=== PATIENT | female | born 1950 | race Caucasian/White ===

== ENCOUNTER 2020-02-16 18:31 | Emergency (ER) | payer MEDICARE, SELFPAY ==
--- NOTE | ~2020-02-16 | XR_ITS ---
EXAMINATION: XR abdomen/kub 1V DATE: 02/16/2020 20:40 INDICATION: Left renal stone with hematuria and left-sided abdominal pain. TECHNIQUE: A supine view of the abdomen on 2 radiographs was obtained. COMPARISON: CT dated 02/16/2020. FINDINGS: 2-3 mm stones are seen projecting over the upper pole of the right kidney and interpolar region of th e left kidney. The 2 x 4 mm stone previously seen in the proximal left ureter is unable to be definit ively identified. Unchanged pattern of a few phleboliths in the pelvis. Normal bowel gas pattern. Cho lecystectomy clips in the right upper quadrant. IMPRESSION: 1. Bilateral nephrolithiasis. Proximal left ureteral stone seen on the prior CT is unable to be defin itively identified. Reviewed, dictated and finalized at location A. IMPRESSION: 1. Bilateral nephrolithiasis. Proximal left ureteral stone seen on the prior CT is unable to be definitively identified.
--- NOTE | ~2020-02-16 | CT_ITS ---
EXAMINATION: CT abdomen pelvis wo con DATE: 02/16/2020 20:00 INDICATION: Left lower quadrant abdominal pain. TECHNIQUE: Computed tomography (CT) of the abdomen and pelvis was performed without intravenous contr ast. Automated exposure control and iterative reconstruction technique were employed. The dose-length product was 308.72 mGy-cm. COMPARISON: 01/07/2019 FINDINGS: Minimal atelectasis in the dependent right lower lobe. Heart size is normal. Small amount of atherosc lerotic coronary artery calcification. No pericardial or pleural effusion. Small sliding-type hiatal hernia. Again seen are multiple scattered hepatic cysts the largest in the right hepatic lobe measuri ng up to 3.5 cm in maximal diameter. Cholecystectomy clips the gallbladder fossa. There are 3 periphe rally calcified splenic artery aneurysms the largest measuring up to 7 mm in maximal diameter. Pancre as and bilateral adrenal glands are normal. 2 mm obstructing stone in the proximal left ureter with m ild left hydronephrosis. Additional 3 mm stone at the upper pole calyx of right kidney and 2 mm stone in a middle calyx of the left kidney. Moderate sigmoid diverticulosis without adjacent inflammatory change to suggest diverticulitis. No bowel obstruction. The appendix is not visualized. No pericecal inflammatory change to suggest acute appendicitis. Bladder is normal. No free intraperitoneal gas or fluid. No pathologically enlarged abdominal or pelvic lymphadenopathy. Chronic mild anterior wedging of T11. Severe spondylosis at the lumbosacral junction. IMPRESSION: 1. Bilateral nephrolithiasis with obstructing 2 mm proximal left ureteral stone with mild left hydron ephrosis. Reviewed, dictated and finalized at location A. IMPRESSION: 1. Bilateral nephrolithiasis with obstructing 2 mm proximal left ureteral stone with mild left hydronephrosis.
[2020-02-16 18:58] VITALS: BP 143/87; PULSE 70; RESP 18; TEMP 36.2; O2SAT 99
[2020-02-16 19:15] LABS: Basophils Percent Auto 0.6 % (0.2-1.2); Eosinophils Absolute Auto 0.1 K/mm3 (0-0.3); Eosinophils Percent Auto 1.4 % (0-4.4); Hematocrit 43.7 % (37.0-47.0); Hemoglobin 14.9 g/dL (12.0-15.0); Immature Granulocyte Absolute 0.01 K/mm3 (0.00-0.031); Immature Granulocyte Percent A 0.2 % (0-0.5); Lymphocytes Absolute Auto 2.45 K/mm3 (0.9-3.2); Lymphocytes Percent Auto 37.4 % (18.3-44.2); Mean Corpuscular HGB Conc 34.1 g/dl (32-36); Mean Corpuscular Volume 88.1 fl (80-100); Mean Platelet Volume 9.9 fl (7.4-10.4); Monocytes Absolute Auto 0.4 K/mm3 (0.1-0.6); Monocytes Percent Auto 6.1 % (2.6-8.5); Neutrophils Absolute Auto 3.6 K/mm3 (1.3-6.7); Neutrophils Percent Auto 54.3 % (45.5-73.1); Platelet Count Result 263 k/mm3 (150-375); Red Blood Count 4.96 M/mm3 (4.2-5.4); Red Cell Distribution Width 13.7 % (11.5-14.5); White Blood Count 6.6 K/mm3 (4.5-10.0)
[2020-02-16 19:25] LABS: Anion Gap 7 mmol/L (8-16); Blood Urea Nitrogen 12 mg/dL (7-17); Calcium 9.5 mg/dL (8.4-10.2); Carbon Dioxide 28 mmol/L (22-30); Chloride 107 mmol/L (98-107); Estimated CRCL calculation 47 ml/min; Estimated Glomerular Filt Rate > 60; Glucose 126 mg/dL (65-105); Potassium 3.5 mmol/L (3.4-5.0); Sodium 142 mmol/L (137-145)
[2020-02-16] MEDS: ONDANSETRON INJ 4 MG/2 ML VIAL IV PUSH (19:47)
[2020-02-16 19:48] VITALS: BP 156/98; PULSE 66; RESP 17; O2SAT 96
[2020-02-16] MEDS: MORPHINE SULFATE (*CRX) 4 MG/ML INJ IV PUSH (19:48)
--- NOTE | 2020-02-16 19:52 | ED.ABDPAIN ---
HPI - Abdominal Pain General Chief Complaint: Abdominal Pain Stated Complaint: abdominal pain, blood in urine Time Seen by Provider: 02/16/20 19:26 History of Present Illness HPI narrative: Patient is a 70-year-old female who presents ER with left lower quadrant abdominal pain. It radiates to her left back. Patient reports symptoms began early in the morning and have increased throughout the day. She had an episode of hematuria with this. No dysuria. She without fevers or chills or sweats. She did have some loose stools over the last couple days. She has history of both kidney stones as well as diverticulitis. Patient has found no aggravating or alleviating factors. Related Data Allergies Allergy/AdvReac Type Severity Reaction Status Date / Time Sulfa (Sulfonamide Allergy Unknown Verified 01/11/18 16:17 Antibiotics) NKFA Allergy Unknown Uncoded 11/10/02 14:37 Review of Systems Review of Systems: All systems reviewed & are unremarkable except as noted in HPI and below Constitutional: Constitutional: Denies chills, Denies fever(s) and Denies weakness Respiratory: Respiratory: Denies cough and Denies dyspnea Gastrointestinal: Gastrointestinal: Reports abdominal pain, Reports diarrhea, Denies nausea and Denies vomiting Genitourinary: Genitourinary: Reports hematuria, Denies nocturia, Denies dysuria and Reports flank pain PMFSH Past Medical History Medical History (Updated 02/16/20 @ 21:43 by Behzad Morgan MD) Diverticulitis GERD (gastroesophageal reflux disease) Kidney stones Surgical History Surgical History (Updated 02/16/20 @ 19:55 by Behzad Morgan MD) History of appendectomy History of cholecystectomy History of hysterectomy Social History Social History (Updated 02/16/20 @ 19:55 by Behzad Morgan MD) Smoking status: Never smoker Exam Narrative: Exam Narrative: GENERAL: Uncomfortable-appearing, well-nourished, and in no acute distress. HEAD: Normocephalic, atraumatic. CHEST: Clear to auscultation. No respiratory distress. HEART: Regular rate and rhythm. Normal peripheral pulses. ABDOMEN: Soft, nontender, nondistended. No CVA tenderness EXTREMITIES: Normal range of motion. No edema. SKIN: Warm, dry, no rash. NEURO: Alert and oriented x3. PSYCH: Normal mood and affect. Course Course Emergency Course: Pain improving with Toradol. Informed results. Discharge home with supportive therapy. Recommend contacting urology in the morning for follow-up evaluation. Vital Signs Vital signs: Vital Signs Temperature 97.2 F L 02/16/20 18:58 Pulse Rate 70 02/16/20 18:58 Respiratory Rate 18 02/16/20 18:58 Blood Pressure 143/87 H 02/16/20 18:58 Pulse Oximetry 99 02/16/20 18:58 Temperature 97.2 F L 02/16/20 18:58 Pulse Rate 66 02/16/20 19:48 Respiratory Rate 17 02/16/20 19:48 Blood Pressure 156/98 H 02/16/20 19:48 Pulse Oximetry 96 02/16/20 19:48 MDM - Abdominal Pain Lab Data Result diagrams: 02/16/20 19:06 02/16/20 19:06 Labs: Lab Results 02/16/20 02/16/20 02/16/20 Range/Units 19:06 19:06 19:34 WBC 6.6 (4.5-10.0) K/mm3 RBC 4.96 (4.2-5.4) M/mm3 Hgb 14.9 (12.0-15.0) g/dL Hct 43.7 (37.0-47.0) % MCV 88.1 (80-100) fl MCH 30.0 (26-34) pg MCHC 34.1 (32-36) g/dl RDW 13.7 (11.5-14.5) % Plt Count 263 (150-375) k/mm3 MPV 9.9 (7.4-10.4) fl Immature Gran % (Auto) 0.2 (0-0.5) % Neut % (Auto) 54.3 (45.5-73.1) % Lymph % (Auto) 37.4 (18.3-44.2) % [place] % (Auto) 6.1 (2.6-8.5) % Eos % (Auto) 1.4 (0-4.4) % Baso % (Auto) 0.6 (0.2-1.2) % Lymph # (Auto) 2.45 (0.9-3.2) K/mm3 [place] # (Auto) 0.4 (0.1-0.6) K/mm3 Eos # (Auto) 0.1 (0-0.3) K/mm3 Baso # (Auto) 0.0 (0.0-0.1) K/mm3 Abs Immat Gran (auto) 0.01 (0.00-0.031) K/mm3 Absolute Neuts (auto) 3.6 (1.3-6.7) K/mm3 Absolute Nucleated RBC 0.0 (0.0-0.012) K/mm3 Nucleated
[2020-02-16 19:54] LABS: Add Urine Microscopic? YES; Amorphous Sediment Urine Few; Appearance Urine Cloudy (Clear); Bacteria Urine Trace /hpf; Bilirubin Urine Negative (Negative); Blood Urine 3+ (Negative); Color Urine Red (Yellow); Glucose Urine UA Negative (Negative); Ketones Urine Negative (Negative); Leukocyte Esterase Ur Trace LEU/UL (Negative); Mucus Urine Heavy /lpf; Nitrate Urine Negative (Negative); Protein Urine 1+ mg/dL (Negative); RBC Urine >75 /hpf (0-2); Squamous Epithelial Cell Urine Rare /hpf (Few); Urobilinogen Urine Negative mg/dL (<2.0)
--- NOTE | 2020-02-16 19:54 | PC.NURSE ---
Pt. to ct
[2020-02-16] MEDS: KETOROLAC 15 MG/ML VIAL (*BKC) IV PUSH (20:28)
[2020-02-16 21:55] VITALS: BP 150/84; PULSE 57; RESP 19; O2SAT 94
== END 2020-02-16 21:55 | disposition home or self-care (01) ==
PROVIDERS: Emergency Medicine; Emergency Provider Emergency Medicine; PCP Family Medicine
DX: N13.2 Hydronephrosis with renal and ureteral calculous obstruction (principal); K21.9 Gastro-esophageal reflux disease without esophagitis; Z87.442 Personal history of urinary calculi
CPT/HCPCS: 36415; 74018; 74176; 80048; 81001; 85025; 87086; 87088; 96374; 96375; 99284; J1885; J2270; J2405

== ENCOUNTER 2020-02-19 00:30 | Day surgery (SDC) | payer MEDICARE, SELFPAY ==
[2020-02-18 14:21] VITALS: BMI 25.7
[2020-02-19] VITALS (9 sets, daily range): BP systolic 110–152; BP diastolic 63–84; PULSE 55–82; RESP 12–18; TEMP 36.2–36.3; O2SAT 96–100
--- NOTE | ~2020-02-19 | XR_ITS ---
EXAMINATION: XR retrograde pyelo w/stent LT EXAM DATE: 02/19/2020 11:27 INDICATION: Ureteral stone. TECHNIQUE: Fluoroscopy used during XR retrograde pyelo w/stent LT performed by Dr. Reymunod serna MD. The DAP for this procedure was 0.3 mGym2. FINDINGS: Left ureter was cannulated, injected. There is mild to moderate left hydronephrosis. A lef t double-J ureteral stent was placed. Correlate with procedure note. IMPRESSION: Mild to moderate left hydronephrosis. Stent in position. Reviewed, dictated and finalized at location A.
--- NOTE | ~2020-02-19 | CT_ITS ---
EXAMINATION: CT abdomen pelvis wo con EXAM DATE: 02/19/2020 09:51 INDICATION: Renal stones. Flank pain. TECHNIQUE: Spiral CT of the abdomen and pelvis was performed without contrast. Axial, coronal and sag ittal images were reviewed. The dose-length product (DLP) for this examination was 282.85 mGy-cm. T he exposure was tailored according to patient size (auto mA exposure control), and iterative reconstr uction (ASIR) was used as additional dose reduction technique. Comparison is made to prior examinatio n from 02/16/2020. FINDINGS: There is a 3 mm stone in the proximal aspect of the left ureter with mild to moderate left- sided hydronephrosis. Position is unchanged compared to prior study but the hydronephrosis has progre ssed slightly. Additional 2 mm left calyceal and 3 mm right calyceal stones. The uterus is not ident ified and has likely been surgically resected. The bladder is unremarkable. Multiple liver fluid de nsity lesions consistent with cysts. Gallbladder not identified, patient likely has had cholecystect yordy. There is no retroperitoneal or pelvic lymphadenopathy. There is mild scattered arteriosclerot ic disease. The appendix is not positively visualized. There is no pericecal inflammatory change to suggest appe ndicitis. There is moderate colonic diverticulosis. There is no adjacent inflammatory change to sugg est diverticulitis. The stomach and small bowel are unremarkable. There is expected amount of coloni c stool. No free intraperitoneal gas. The heart is normal in size. There are no pericardial or p leural effusions. The lung bases are unremarkable. There are no osteoblastic or osteolytic lesions identified. IMPRESSION: 1. Left proximal ureteral 3 mm stone, mild to moderate left-sided hydronephrosis. 2. Bilateral nephrolithiasis. 3. Colonic diverticulosis. Reviewed, dictated and finalized at location A. IMPRESSION: 1. Left proximal ureteral 3 mm stone, mild to moderate left-sided hydronephros is. 2. Bilateral nephrolithiasis. 3. Colonic diverticulosis.
--- NOTE | 2020-02-19 09:59 | WPDHPUPDATE1 ---
History and Physical Update Update Date/Time: 02/19/20 09:59 History and Physical has been reviewed, including an updated exam of the patient. There are NO changes in the patient's condition. Risks, benefits, and alternatives have been discussed and questions answered. Patient agrees to proceed with procedure. Stone not visible on kub. Discussed with Rosa Elena. Will plan on cystoscoy with left retrograde, left ureteroscopy with stone extraction, possible laser, stent placement.
[2020-02-19] MEDS: LACTATED RINGERS 1,000 ML 30 ML IV CONT ×2 (10:29→12:20)
--- NOTE | 2020-02-19 10:29 | WPDANESEPPF ---
Anes - Initial Pre Proc Eval Procedure: Operation Date: 02/19/20 10:30 Proposed Procedures p Left Extracorporeal Shock Wave Lithotripsy, Possible Stent Placement - Reymundo Celis MD Date/Time: 02/19/20 10:29 Surgeon: Reymundo Celis MD Pre Op Diagnosis: left upj stone Patient Data Age: 70 Gender: F Height: 5 ft 5 in Weight: 70.31 kg Allergies Allergy/AdvReac Type Severity Reaction Status Date / Time Sulfa (Sulfonamide AdvReac Intermediate Nausea Verified 02/19/20 09:54 Antibiotics) Home Medications Medication Instructions Recorded Confirmed Type ergocalciferol (vitamin D2) 50,000 unit PO WEEKLY 02/18/20 02/19/20 History loratadine [Claritin] 10 mg PO DAILY 02/18/20 02/19/20 History Patient hx anesthesia problems: post op nausea/vomiting Family hx anesthesia problems: none PMFSH Past Medical History Medical History Diverticulitis GERD (gastroesophageal reflux disease) Kidney stones Surgical History Surgical History History of appendectomy History of cholecystectomy History of hysterectomy Social History Social History Smoking status: Never smoker Alcohol intake: never Substance use: never Substance use type: does not use Living arrangements: with family Spiritual care concerns: No Anes - Eval Final PreProcedure Day of Procedure 02/19/20 10:29 Patient weight: overweight Lungs: clear to auscultation Airway: Mallampati scale class II Neurological: alert and oriented Last oral intake: >/= 8 hours ASA classification: II Emergent: no Anesthetic plan: proceed Anesthesia type and monitoring: general LMA and standard monitoring Informed Consent: The patient's anesthetic plan and its attendant risks and benefits were discussed with the patient/family/POA. Questions were solicited and answers provided to the satisfaction of the patient/family/POA.
[2020-02-19] MEDS: ONDANSETRON INJ 4 MG/2 ML VIAL IV PUSH ×2 (10:30→12:16)
[2020-02-19] MEDS: FAMOTIDINE 20 MG/2 ML VIAL IV PUSH (10:31)
[2020-02-19] MEDS: ceFAZolin 2 GM/D5W 50 ML 2 GM/50 ML BAG IVPB (10:58)
[2020-02-19] MEDS: LIDOCAINE HCL 2% GEL UROJET 10 ML PKG MUCOUS MEM (11:27)
--- NOTE | 2020-02-19 11:27 | PM.PROC ---
Procedure Note - Detailed Date of procedure: 02/19/20 Pre-op diagnosis: left upj stone Left ureteral calculus 4 x 2 mm Post-op diagnosis: same Procedure performed: Cystoscopy, left retrograde pyelogram, left ureteroscopy with stone extraction, left ureteral stent placement 4.8 [place] contour Description of procedure: Patient is taken to the operative suite and correctly identified. Once anesthesia was obtained she was placed in dorsal lithotomy position and prepped and draped usual sterile fashion. Twenty-two [place] scope was inserted in the bladder there is no tumors noted. Left ureteral orifice was cannulated with a guidewire. An 8/10 dilator was used to dilate the orifice. A rigid ureteral scope was inserted there was nothing visualized in the distal ureter. We then placed a mini flexible ureteral scope in. We inspected entire ureter. It appears that the stone had migrated back up into the kidney. As such we inspected the kidney. The stone was visualized it was irregular in shape and measured the 4 x 2 mm. Using an escape basket we were able to retrieve it in its entirety and sent for analysis. Pyelogram was then performed to confirm placement of the stent. 4.8 [place] contour stent was then placed with the proximal end coiled in the renal pelvis and the distal end in the bladder. 2% viscous lidocaine was inserted urethra. On fluoroscopy it appeared that there was some calcification right next to the distal stent we placed another rigid ureteral scope into the orifice and it is clearly visible that this is outside of the ureter. She will follow up in a week's time for stent removal. Anesthesia: GLMA Surgeon: Reymundo Celis MD Drains: Yes Packing: No Pathology: yes Complications: No immediate complications Condition: stable Disposition: PACU
--- NOTE | 2020-02-19 11:30 | PM.IMHP ---
H&P: HPI History of Present Illness Date/Time: 02/19/20 11:30 Chief complaint: left upj stone Narrative: Rosa Elena Greene is a 70 year old female who was seen by 1 of our nurse practitioners and found to have a 4 x 2 mm left ureteral calculus. It was poorly visible on plain film. She now presents for further evaluation and management. Review of Systems Review of Systems: All systems reviewed & are unremarkable except as noted in HPI and below PMFSH Past Medical History Medical History Diverticulitis GERD (gastroesophageal reflux disease) Kidney stones Surgical History Surgical History History of appendectomy History of cholecystectomy History of hysterectomy Social History Social History Smoking status: Never smoker Alcohol intake: never Substance use: never Substance use type: does not use Living arrangements: with family Spiritual care concerns: No Meds Home Medications and Allergies Home Medications Medication Instructions Recorded Confirmed Type ergocalciferol (vitamin D2) 50,000 unit PO WEEKLY 02/18/20 02/19/20 History loratadine [Claritin] 10 mg PO DAILY 02/18/20 02/19/20 History Allergies Allergy/AdvReac Type Severity Reaction Status Date / Time Sulfa (Sulfonamide AdvReac Intermediate Nausea Verified 02/19/20 09:54 Antibiotics) Vital Signs Vital Signs - 24 hr 02/19/20 10:39 Temperature 36.3 C L Pulse Rate 61 Respiratory Rate 16 Blood Pressure 134/79 Pulse Oximetry 98 Exam Const: General: uncomfortable HENMT: General nose exam: Normal nares present Eyes: General: appearance normal, both eyes and all related structures Resp: Effort & Inspection: normal respiratory effort Cardio: Rate: regular rate GI: GI Palp: Yes Soft to palpation Neuro: Speech: normal speech Assessment and Plan Assessment and plan (1) Left ureteral calculus: Code(s): N20.1 - Calculus of ureter Status: Acute Assessment and Plan: Plan for cystoscopy, left retrograde pyelogram, left ureteroscopy with stone extraction, left ureteral stent placement.
--- NOTE | 2020-02-19 16:27 | SUR.PHASEII ---
1330; PT DRESSED. C/O MILD NAUSEA. WANTS TO SIT AND RELAX FOR A WHILE. 1350; PT STATES SHE IS NAUSEA AND PAIN FREE. READY TO GO HOME. MEETS DISCHARGE CRITERIA.
== END 2020-02-19 14:10 | disposition home or self-care (01) ==
PROVIDERS: PCP Family Medicine; Visit Provider Urology
PROC: (CPT 50590; principal; 2020-02-19 10:30)
DX: N13.2 Hydronephrosis with renal and ureteral calculous obstruction (principal); K21.9 Gastro-esophageal reflux disease without esophagitis
CPT/HCPCS: 52352; 52332; 74176; 74420; 82365; 88300; A9270; C1769; C2617; J0690; J1100; J2250; J2405; J2704; J3010; J7120

== ENCOUNTER 2020-06-06 12:04 | Outpatient (CLI) | payer MEDICARE, SELFPAY ==
--- NOTE | ~2020-06-06 | XR_ITS ---
EXAMINATION: XR abdomen/kub 1V EXAM DATE: 06/06/2020 12:28 INDICATION: Follow-up kidney stone. TECHNIQUE: Frontal projection of the upper abdomen, frontal projection lower abdomen/pelvis for inter pretation. Comparison is made to prior examination from 02/16/2020. FINDINGS: Probable small bilateral nephrolithiasis up to 3 mm. There are cholecystectomy clips. Nono bstructive bowel gas pattern. There are mild bony degenerative changes. IMPRESSION: Probable small nephrolithiasis. Reviewed, dictated and finalized at location A. [employer]
== END 2020-06-06 12:05 | disposition home or self-care (01) ==
PROVIDERS: PCP Family Medicine; Visit Provider Urology
DX: N20.0 Calculus of kidney (principal)
CPT/HCPCS: 74018

== ENCOUNTER → 2021-04-06 02:34 | Outpatient (CLI) | payer MEDICARE, SELFPAY ==
[2021-04-06 18:39] LABS: SARS-CoV-2 RNA PCR Negative
== END ==
PROVIDERS: PCP Family Medicine; Visit Provider Family Medicine
DX: R50.9 Fever, unspecified (principal); Z20.822 Contact with and (suspected) exposure to COVID-19
CPT/HCPCS: C9803; U0003; U0005

== ENCOUNTER 2021-04-26 00:26 | Day surgery (SDC) | payer MEDICARE, SELFPAY ==
[2021-04-11 14:19] VITALS: BMI 27.5
[2021-04-26 10:22] VITALS: BP 149/92; PULSE 91; RESP 18; TEMP 26.9; O2SAT 96
[2021-04-26] MEDS: LACTATED RINGERS 1,000 ML 150 ML IV CONT (10:32)
--- NOTE | 2021-04-26 11:15 | WPDANESEPPF ---
Anes - Initial Pre Proc Eval Procedure: Operation Date: 04/26/21 11:30 Proposed Procedures p Screening Colonoscopy - Roe Parkinson MD Date/Time: 04/26/21 11:15 Surgeon: Roe Parkinson MD Pre Op Diagnosis: neoplasm screening Patient Data Age: 71 Gender: F Height: 1.65 m Weight: 80.4 kg Last Vital Signs Temp 80.4 F L 04/26/21 10:22 Pulse 91 04/26/21 10:22 Resp 18 04/26/21 10:22 BP 149/92 H 04/26/21 10:22 Pulse Ox 96 04/26/21 10:22 Allergies Allergy/AdvReac Type Severity Reaction Status Date / Time Sulfa (Sulfonamide AdvReac Intermediate Nausea Verified 04/26/21 10:21 Antibiotics) Home Medications Medication Instructions Recorded Confirmed Type ergocalciferol (vitamin D2) 50,000 unit PO WEEKLY 02/18/20 04/11/21 History loratadine [Claritin] 10 mg PO DAILY 02/18/20 04/11/21 History escitalopram oxalate 5 mg PO HS 04/11/21 04/11/21 History Patient hx anesthesia problems: none Family hx anesthesia problems: none Results Review: All pre-operative results and documents have been reviewed as part of the pre-operative evaluation. [facility] Past Medical History Medical History (Updated 02/19/20 @ 11:32 by Reymundo Celis MD) Diverticulitis GERD (gastroesophageal reflux disease) Kidney stones Surgical History Surgical History History of appendectomy History of cholecystectomy History of hysterectomy Social History Social History Smoking status: Never smoker Alcohol intake: never Substance use: never Substance use type: does not use Living arrangements: with family Spiritual care concerns: No Anes - Eval Final PreProcedure Day of Procedure 04/26/21 11:15 Patient weight: obese Heart: regular rate and rhythm Lungs: clear to auscultation Airway: Mallampati scale class II Neurological: alert and oriented Last oral intake: >/= 8 hours ASA classification: II Emergent: no Anesthetic plan: proceed Anesthesia type and monitoring: general GIVS and standard monitoring Results Review: All pre-operative results and documents have been reviewed as part of the pre-operative evaluation. Informed Consent: The patient's anesthetic plan and its attendant risks and benefits were discussed with the patient/family/POA. Questions were solicited and answers provided to the satisfaction of the patient/family/POA.
--- NOTE | 2021-04-26 11:16 | WPDANESEPPF ---
Anes - Initial Pre Proc Eval Procedure: Operation Date: 04/26/21 11:30 Proposed Procedures p Screening Colonoscopy - Roe Parkinson MD Date/Time: 04/26/21 11:16 Surgeon: Roe Parkinson MD Pre Op Diagnosis: neoplasm screening Patient Data Age: 71 Gender: F Height: 1.65 m Weight: 80.4 kg Last Vital Signs Temp 80.4 F L 04/26/21 10:22 Pulse 91 04/26/21 10:22 Resp 18 04/26/21 10:22 BP 149/92 H 04/26/21 10:22 Pulse Ox 96 04/26/21 10:22 Allergies Allergy/AdvReac Type Severity Reaction Status Date / Time Sulfa (Sulfonamide AdvReac Intermediate Nausea Verified 04/26/21 10:21 Antibiotics) Home Medications Medication Instructions Recorded Confirmed Type ergocalciferol (vitamin D2) 50,000 unit PO WEEKLY 02/18/20 04/11/21 History loratadine [Claritin] 10 mg PO DAILY 02/18/20 04/11/21 History escitalopram oxalate 5 mg PO HS 04/11/21 04/11/21 History Patient hx anesthesia problems: none Family hx anesthesia problems: none Results Review: All pre-operative results and documents have been reviewed as part of the pre-operative evaluation. [facility] Past Medical History Medical History (Updated 02/19/20 @ 11:32 by Reymundo Celis MD) Diverticulitis GERD (gastroesophageal reflux disease) Kidney stones Surgical History Surgical History History of appendectomy History of cholecystectomy History of hysterectomy Social History Social History Smoking status: Never smoker Alcohol intake: never Substance use: never Substance use type: does not use Living arrangements: with family Spiritual care concerns: No Anes - Eval Final PreProcedure Day of Procedure 04/26/21 11:16 Patient weight: obese Heart: regular rate and rhythm Lungs: clear to auscultation Airway: Mallampati scale class II Neurological: alert and oriented Last oral intake: >/= 8 hours ASA classification: II Emergent: no Anesthetic plan: proceed Anesthesia type and monitoring: general GIVS and standard monitoring Results Review: All pre-operative results and documents have been reviewed as part of the pre-operative evaluation. Informed Consent: The patient's anesthetic plan and its attendant risks and benefits were discussed with the patient/family/POA. Questions were solicited and answers provided to the satisfaction of the patient/family/POA.
--- NOTE | 2021-04-26 11:18 | PM.HPGS ---
History of Present Illness History of Present Illness Consent: Risks, benefits, and alternatives have been discussed and questions answered. Patient agrees to proceed with procedure. Chief complaint: neoplasm screening Narrative: Rosa Elena Greene is a 71 year old female here for screening colonoscopy, last one 10 years ago. Review of Systems Constitutional: Constitutional: Denies headache(s) and Denies weakness Eyes: Eyes: Denies blurry vision ENT: Reports Normal hearing present, Denies headache(s) and Denies neck pain Cardiovascular: Cardiovascular: Denies chest pain and Denies dyspnea Respiratory: Respiratory: Denies dyspnea Gastrointestinal: Gastrointestinal: Reports no additional gastrointestinal complaints Genitourinary: Genitourinary: Denies dysuria Musculoskeletal: Musculoskeletal: Denies neck pain Integumentary/Breasts: Skin/Breast: Denies dry skin Neurologic: Reports Normal hearing present, Denies headache(s) and Denies weakness Psychiatric: Psychiatric: Denies anxiety Endocrine: Endocrine: Denies change in body appearance Hematologic/Lymphatic: Hematologic/Lymphatic: Denies easy bleeding Allergic/Immunologic: Allergic/Immunologic: Denies urticaria PMF Past Medical History Medical History (Updated 04/26/21 @ 11:19 by Roe Parkinson MD) Colon cancer screening Diverticulitis GERD (gastroesophageal reflux disease) Kidney stones Surgical History Surgical History History of appendectomy History of cholecystectomy History of hysterectomy Social History Social History Smoking status: Never smoker Alcohol intake: never Substance use: never Substance use type: does not use Living arrangements: with family Spiritual care concerns: No Meds Home Medications and Allergies Home Medications Medication Instructions Recorded Confirmed Type ergocalciferol (vitamin D2) 50,000 unit PO WEEKLY 02/18/20 04/11/21 History loratadine [Claritin] 10 mg PO DAILY 02/18/20 04/11/21 History escitalopram oxalate 5 mg PO HS 04/11/21 04/11/21 History Allergies Allergy/AdvReac Type Severity Reaction Status Date / Time Sulfa (Sulfonamide AdvReac Intermediate Nausea Verified 04/26/21 10:21 Antibiotics) Vital Signs Vital Signs - 24 hr 04/26/21 10:22 Temperature 80.4 F L Pulse Rate 91 Respiratory Rate 18 Blood Pressure 149/92 H Pulse Oximetry 96 Exam Const: General: comfortable and no acute distress HENMT: General nose exam: Normal nares present Eyes: General: appearance normal, both eyes and all related structures Neck: Neck: no JVD Resp: Auscultation: clear to auscultation bilaterally Cardio: Rate: regular rate Rhythm: regular rhythm GI: Inspection: non-distended GI Palp: Yes Soft to palpation Skin: General skin exam: normal color Neuro: General: gait normal Speech: normal speech Extrem: General: normal to inspection Psych: Mental Status: mental status grossly normal Assessment and Plan Assessment and plan (1) Colon cancer screening: Code(s): Z12.11 - Encounter for screening for malignant neoplasm of colon Status: Acute Assessment and Plan: colonoscopy
[2021-04-26 11:43] VITALS: BP 123/76; PULSE 81; RESP 16; O2SAT 97
[2021-04-26 11:53] VITALS: BP 119/78; PULSE 66; RESP 18; O2SAT 98
[2021-04-26 12:03] VITALS: BP 128/74; PULSE 69; RESP 17; O2SAT 98
== END 2021-04-26 12:10 | disposition home or self-care (01) ==
PROVIDERS: PCP Family Medicine; Visit Provider Internal Medicine Gastroenterology
PROC: 0DJD8ZZ Inspection of Lower Intestinal Tract, Via Natural or Artificial Opening Endoscopic (ICD-10-PCS; CPT 45378; principal; 2021-04-26 11:30)
DX: Z12.11 Encounter for screening for malignant neoplasm of colon (principal); K57.30 Diverticulosis of large intestine without perforation or abscess without bleeding; K64.8 Other hemorrhoids; E66.9 Obesity, unspecified; Z68.29 Body mass index [BMI] 29.0-29.9, adult
CPT/HCPCS: G0121; J2704; J7120

== ENCOUNTER 2021-09-19 13:32 | Outpatient (CLI) | payer MEDICARE, SELFPAY ==
--- NOTE | 2021-09-27 15:25 | WPDHOLTEREM ---
Holter/Event Monitor Holter/Event Monitor Date of procedure: 09/19/21 Holter/Event Procedure: 48 Hr Holter Monitor Indications: Palpitations Conclusion: 1. 48 hour holter monitor on 09/19/21. 2. Predominant rhythm is sinus rhythm. HR range 48-136 bpm; average HR 65 bpm. 3. There are 125 premature supraventricular complexes and 9 supraventricular couplets. There are 5 episodes of atrial tachycardia, fastest at 162 bpm and longest lasting 7 beats. 4. There are 3 premature ventricular complexes. No ventricular tachycardia. 5. No sinoatrial or atrioventricular blocks. No significant pauses greater than 2 seconds. 6. Patient reports symptoms of dizziness and heart palpitations which demonstrate sinus rhythm, HR range 62-68 bpm.
== END 2021-09-19 13:33 | disposition home or self-care (01) ==
PROVIDERS: PCP Family Medicine; Visit Provider Family Medicine
DX: R00.2 Palpitations (principal)
CPT/HCPCS: 93225; 93226

== ENCOUNTER 2021-11-17 13:30 | Outpatient (RCR) | payer MEDICARE, SELFPAY ==
--- NOTE | 2021-10-05 11:52 | PTOPEVAL ---
Thank you for referring Rosa Elena Greene to [facility].? The patient is scheduled to be seen for therapy? 1 x/week for 4 weeks. Please review, sign, date and return this plan of care JAVIER. I agree with and certify that the following plan of care is medically necessary. Referring Physician Date Attending Provider: Juan Antonio Francis MD Referring Provider: Juan Antonio Francis MD *PT Outpatient Evaluation Start: 10/05/21 08:31 Freq: Status: Active Protocol: Document 10/05/21 08:32 CAP (Rec: 10/05/21 09:36 CAP [id number]) Therapy Assessment Status Assessment Status Assessment Status Evaluation Outpatient Past Medical History Past Medical History Source of Past Medical History Recalled from Previous Visit, Confirmed with Patient/Family Neurological History Hx Neurological Disorders No Significant History Cardiovascular History Hx Cardiac Disorders No Significant History Respiratory History Hx Respiratory Disorders No Significant History Gastrointestinal History Hx Cholecystectomy Yes: 2004 Hx Colitis Yes: 2018 Hx Diverticulitis Yes Hx Diverticulosis Yes Hx Irritable Bowel Yes: CONSTIPATION AND DIARRHEA Hx Ulcerative Colitis Yes: 2010 Genitourinary History Hx Kidney Stones Yes: 02/2019, 12/2016 Musculoskeletal History Hx Fractures Yes: FOOT X5, ELBOW X1 Hx Osteoporosis Yes Hematological History Hx Hematological Disorders No Significant History Endocrine History Hx Endocrine Disorders No Significant History HEENT History Hx Sinus Problems Yes: ALLERGIES Integumentary History Hx Skin Disorders No Significant History Reproductive History Hx Abnormal Uterine Bleeding Yes Hx Fibroids Yes Psychosocial History Hx Anxiety Yes Pain History History of Any Previous or Ongoing No Significant History Instance of Pain Anesthesia History Hx Post-Op Nausea/Vomiting Yes: WITH GENERALS Evaluation Information Problem Diagnosis vertigo Onset Apr 2021 Subjective Information She woke up with vertigo Query Text:As Reported By Patient/ symptoms. C/o the room Family spinning, rolling in bed and sit<>supine movement. She is unable to rene head back for getting hair cut or dentist visits. Denies increased symptoms with driving. she has had 2-3 episodes in the past 10 yrs. She has a history of falls.
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
--- NOTE | 2021-11-17 14:23 | PTOPEVAL ---
PHYSICAL THERAPY DISCHARGE REPORT 11-17-21 Refer to clinical summary below for her status today, compared to the initial evaluation. The goals were achieved, she will be discharged at this time. Thank you for referring Rosa Elena Greene to [facility] Please review, sign, date and return this Discharge report JAVIER. I agree with and certify that the following plan of care is medically necessary. Referring Physician Date Attending Provider: Juan Antonio Francis MD Subjective Information Rosa Elena reports: is doing Query Text:As Reported By Patient/ much better than initially; Family went to dentist a few days OK and did OK; little dizzy when tipped head back with shower and rinsing hair; no problems rolling in bed R/L; am careful when first get up out of bed, sit at the edge a minute before taking off walking; no falls or loss of balance with walking Pain Assessment Pain Score Pain Score 0: Self Report Vestibular Testing Niecy-Hallpike Right Vertigo but no Nystagmus Vestibular Testing Comments - standing 360' turn to R and L 1x rep -standing head R/L x 3 reps -pick something up off floor -stand eyes closed-- firm and foam x 10-20 seconds - walk 50': head turn R/L and up/down 5 reps each; - walk 50' with ball in both hands, eyes follow ball R/L, up/down and diagonal to R and L all above without any reports of dizziness, but off balance with walking head up/ down and eyes follow ball Eply performed to R: rep 1- little dizzy, cleared 10 sec; rep 2- no dizzy, with side lying to sitting had little dizzy; rep3- no dizzy, but side lying to sitting little dizzy, clear few seconds --------- issued and educated on Arora Daroff maneuver for self correction of BPPV; reinforced and discussed
== END 2021-11-21 13:50 | disposition home or self-care (01) ==
LOC: ANHPT 13:30
PROVIDERS: PCP Family Medicine; Referring Provider Otolaryngology; Visit Provider Otolaryngology
DX: H81.13 Benign paroxysmal vertigo, bilateral (principal); H90.3 Sensorineural hearing loss, bilateral
CPT/HCPCS: 97112; 97162; 97530

== ENCOUNTER 2021-12-01 15:01 | Emergency (ER) | payer MEDICARE, SELFPAY ==
--- NOTE | ~2021-12-01 | XR_ITS ---
XR chest 2V DATE: 12/01/2021 15:28 INDICATION: Cough for 2 weeks. Right chest pain. TECHNIQUE: 2 views COMPARISON: 02/23/2016 2 view chest FINDINGS: Normal heart size. Aortic calcification and mild unfolding. No hilar or mediastinal enlarge ment. No pulmonary infiltrate or consolidation, pleural effusion or pulmonary vascular congestion or pneumo thorax. Surgical clips overlie the upper abdomen on the lateral view. Osteopenia. IMPRESSION: No active cardiac pulmonary disease Aortic atherosclerosis Osteopenia Reviewed, dictated and finalized at location A.
[2021-12-01 15:09] VITALS: BP 139/83; PULSE 79; RESP 20; TEMP 36.3; O2SAT 99
--- NOTE | 2021-12-01 15:28 | ED.URI ---
HPI - URI/Sore Throat General Chief Complaint: Upper Respiratory Infection Stated Complaint: Cough Time Seen by Provider: 12/01/21 15:29 Source: patient and RN notes reviewed Mode of arrival: ambulatory Limitations: no limitations History of Present Illness HPI Narrative: 71-year-old female who presents to [facility] with complaints of dry cough for the past 2 weeks with cough so bad she states that she can't hardly even talk. Patient reports that she has had some right shoulder blade pain for the past week and also some right chest pain with cough also. Patient reports that she has not had any fevers, no sore throat, and no runny nose, and she can't get into her doctor for 2 weeks. Patient garay been taking Tessalon Perles for her cough which patient reports last only short interval. Patient concerned because she has history of having pneumonia and bronchitis in the past. Patient has had COVID vaccinations and flu shot MD elicited complaint: cough Onset (ago): week(s) (2) Consistency: progressively worsening Pain scale (0-10): 8 Able to tolerate fluids by mouth: Yes Exacerbating factors: exertion and other (speaking) Treatments prior to arrival: other (tessalon perles) Related Data Home Medications Medication Instructions Recorded Confirmed ergocalciferol (vitamin D2) 1,250 50,000 unit PO WEEKLY 02/18/20 12/01/21 mcg (50,000 unit) capsule loratadine 10 mg tablet (Claritin) 10 mg PO DAILY 02/18/20 12/01/21 levothyroxine 25 mcg tablet 1 tablet PO DAILY 12/01/21 12/01/21 Allergies Allergy/AdvReac Type Severity Reaction Status Date / Time Sulfa (Sulfonamide AdvReac Intermediate Nausea Verified 12/01/21 15:03 Antibiotics) Review of Systems Review of Systems: CONSTITUTIONAL: Denies fever, chills, or sweats. EYES: Denies visual changes, redness, or discharge. ENT: Denies rhinorrhea, congestion, sore throat, some right ear otalgia. CARDIOVASCULAR: Right shoulder blade and chest pain with cough,no palpitations, or edema. RESPIRATORY: dry constant cough or some dyspnea with cough GASTROINTESTINAL: Denies abdominal pain, nausea, vomiting, or diarrhea. GENITOURINARY: Denies dysuria or hematuria. SKIN: Denies rash or itching. MUSCULOSKELETAL: Reports right scapular back pain,no joint pain, or myalgia. NEUROLOGIC: Denies headache, numbness, or weakness. PSYCHIATRIC: Denies anxiety or depression. All systems reviewed & are unremarkable except as noted in HPI and below PMFSH Past Medical History Medical History Colon cancer screening Diverticulitis GERD (gastroesophageal reflux disease) Kidney stones Surgical History Surgical History History of appendectomy History of cholecystectomy History of hysterectomy Social History Social History Smoking status: Never smoker Alcohol intake: never Substance use: never Substance use type: does not use Spiritual care concerns: No Comments At time of signature, agree with nursing past medical, surgical, social and family history. There is no relevant family history pertinent to the presenting complaint Exam Narrative: GENERAL: Well-appearing, well-nourished, and in some acute distress. HEAD: Normocephalic, atraumatic. EYES: PERRLA and EOMI. ENT: Nares red clear post nasal rhinorrhea no epistaxis. Mucous membranes moist.TM's normal with good light reflex, throat with some mild redness no lesions or exudates or tonsil swelling NECK: Supple.no lymphadenopathy CHEST: Decreased with faint wheezes on auscultation with constant dry cough No respiratory distress.SAO2 99% on room air. Right scapular pain with some anterior right chest discomfort with cough, constant harsh cough, denies acute dyspnea. HEART: Regular rate and rhythm. No murmur heard. Normal peripheral pulses. ABDOMEN: Soft, nontender, nondistended, nor
== END 2021-12-01 15:58 | disposition home or self-care (01) ==
PROVIDERS: Emergency Provider Registered Nurse; PCP Family Medicine
DX: J40 Bronchitis, not specified as acute or chronic (principal); Z20.822 Contact with and (suspected) exposure to COVID-19; K21.9 Gastro-esophageal reflux disease without esophagitis
CPT/HCPCS: 71046; 87426; 99213; C9803; G0463

== ENCOUNTER 2022-10-01 14:09 | Emergency (ER) | payer MEDICARE, SELFPAY ==
--- NOTE | ~2022-10-01 | CT_ITS ---
EXAMINATION: CT abdomen pelvis w con DATE: 10/01/2022 16:19 INDICATION: Lower abdominal pain TECHNIQUE: Computed tomography (CT) of the abdomen and pelvis was performed with 100 mL Omnipaque-350 intravenous contrast. Automated exposure control and iterative reconstruction technique were employe d. The dose-length product was 651.69 mGy-cm. COMPARISON: 02/19/2020 FINDINGS: Mild atelectasis at the lung bases, right greater than left. Heart size is normal. Atherosclerotic co ronary artery calcific location. No pericardial or pleural effusion. Small sliding-type hiatal hernia . There is approximately 1.2 cm avidly enhancing lesion at the anterior periphery of segment 2 of the liver. Borderline dilation of the common bile duct which measures up to 7 mm and mild central intrah epatic biliary ductal dilation, both findings within normal limits post cholecystectomy with surgical clips at the gallbladder fossa. Spleen, pancreas and bilateral adrenal glands are normal. Small bila teral nonenhancing renal cysts, the largest measuring up to 1 cm on both the left and right. There is mild to moderate right hydroureteronephrosis extending to a 7 mm stone in the distal right ureter. T here is also a slightly delayed right nephrogram. No other evident urolithiasis. Bladder is normal. T he uterus is not identified and has likely been surgically resected. There is moderate no bowel obstr uction. colonic diverticulosis with a sigmoid predominance. There is no adjacent inflammatory change to suggest diverticulitis. No free intraperitoneal gas or fluid. No pathologically enlarged abdomina l or pelvic lymphadenopathy. Severe disc height loss at L5-S1. Otherwise mild spondylosis in the more cephalad lumbar and lower thoracic spine. Chronic mild anterior wedging at T11 with prominent Schmor l's node along the superior endplate. IMPRESSION: 1. Obstructing 7 mm distal right ureteral stone with mild to moderate right hydronephrosis and minima lly delayed right nephrogram. 2. 1.2 cm enhancing lesion in segment 2 of the liver most likely to represent either a hemangioma or transient hepatic attenuation difference. If patient is low risk for hepatocellular carcinoma and wit h no known history of prior malignancy to suggest metastatic disease superior corner further follow-u p. If the patient does have history of prior malignancy or has known chronic liver disease or other i ncreased risk factors for hepatocellular carcinoma would recommend further evaluation with pre and po stcontrast MRI. Reviewed, dictated and finalized at location A. IMPRESSION: 1. Obstructing 7 mm distal right ureteral stone with mild to moderate right hyd ronephrosis and minimally delayed right nephrogram. 2. 1.2 cm enhancing lesion in segment 2 of the liver most likely to represent e ither a hemangioma or transient hepatic attenuation difference. If patient is l ow risk for hepatocellular carcinoma and with no known history of prior maligna ncy to suggest metastatic disease superior corner further follow-up. If the pat ient does have history of prior malignancy or has known chronic liver disease o r other increased risk factors for hepatocellular carcinoma would recommend fur ther evaluation with pre and postcontrast MRI.
--- NOTE | ~2022-10-01 | XR_ITS ---
EXAMINATION: XR abdomen/kub 1V DATE: 10/01/2022 18:35 INDICATION: Right nephrolithiasis TECHNIQUE: A supine view of the abdomen was obtained. COMPARISON: CT dated 10/01/2022 FINDINGS: Persistent mild right hydroureteronephrosis extending to a transition point in the mid to distal righ t ureter but this corresponds to the location of the previously noted obstructing stone which likely remains in place but is difficult to distinguish from the adjacent excreted contrast. No left-sided h ydroureteronephrosis. Phlebolith in the left hemipelvis. Cholecystectomy clips in right upper quadran t. Normal bowel gas pattern. IMPRESSION: 1. Persistent mild to moderate right hydronephrosis related to an obstructing stone in the mid to dis christopher right ureter which is likely obscured by the excreted contrast in the ureter. Reviewed, dictated and finalized at location A. IMPRESSION: 1. Persistent mild to moderate right hydronephrosis related to an obstructing s tone in the mid to distal right ureter which is likely obscured by the excreted contrast in the ureter.
[2022-10-01 14:10] VITALS: BP 152/83; PULSE 86; RESP 16; TEMP 36.9; O2SAT 98
[2022-10-01 14:28] LABS: Basophils Percent Auto 0.6 % (0.2-1.2); Eosinophils Absolute Auto 0.2 K/mm3 (0-0.3); Eosinophils Percent Auto 2.3 % (0-4.4); Hematocrit 46.5 % (37.0-47.0); Hemoglobin 15.7 g/dL (12.0-15.0); Immature Granulocyte Absolute 0.01 K/mm3 (0.00-0.031); Immature Granulocyte Percent A 0.2 % (0-0.5); Lymphocytes Absolute Auto 1.95 K/mm3 (0.9-3.2); Mean Corpuscular HGB Conc 33.8 g/dl (32-36); Mean Corpuscular Hemoglobin 29.8 pg (26-34); Mean Corpuscular Volume 88.4 fl (80-100); Mean Platelet Volume 9.6 fl (7.4-10.4); Monocytes Absolute Auto 0.3 K/mm3 (0.1-0.6); Monocytes Percent Auto 5.1 % (2.6-8.5); Neutrophils Percent Auto 61.8 % (45.5-73.1); Platelet Count Result 250 k/mm3 (150-375); Red Blood Count 5.26 M/mm3 (4.2-5.4); Red Cell Distribution Width 13.7 % (11.5-14.5); White Blood Count 6.5 K/mm3 (4.5-10.0)
[2022-10-01 14:40] LABS: Alanine Aminotransferase 25 U/L (6-35); Albumin Level 4.3 g/dL (3.5-5.1); Alkaline Phosphatase 52 U/L (38-126); Anion Gap 9 mmol/L (8-16); Aspartate Amino Transferase 31 U/L (14-36); Bilirubin,Total 0.6 mg/dL (0.2-1.3); Blood Urea Nitrogen 7 mg/dL (7-17); Calcium 9.2 mg/dL (8.4-10.2); Carbon Dioxide 24 mmol/L (22-30); Chloride 105 mmol/L (98-107); Estimated CRCL calculation 58 ml/min; Estimated Glomerular Filt Rate > 60; Glucose 111 mg/dL (65-110); Lipase 157 U/L (23-300); Sodium 138 mmol/L (137-145)
[2022-10-01] MEDS: ONDANSETRON INJ 4 MG/2 ML VIAL IV PUSH (15:58)
[2022-10-01] MEDS: MORPHINE SULFATE (*CRX) 2 MG/ML INJ IV PUSH (15:58)
--- NOTE | 2022-10-01 16:05 | ED.ABDPAIN ---
HPI - Abdominal Pain General Chief Complaint: Abdominal Pain Stated Complaint: abdominal pain Time Seen by Provider: 10/01/22 15:32 History of Present Illness HPI narrative: Patient is a 72-year-old female here for evaluation of right flank and right lower quadrant abdominal pain x2 days. Patient states that the pain is severe in nature, coming in waves without warning. Does not seem to be related to meals or positions. She spoke with her primary care doctor who thought it may be diverticulitis, placed her on ciprofloxacin and dicyclomine but patient has had no improvement of her symptoms. Presents today due to worsening pain and nausea. No diarrhea, constipation, fevers or chills. History of kidney stones but pain today feels different. Related Data Home Medications Medication Instructions Recorded Confirmed ergocalciferol (vitamin D2) 1,250 50,000 unit PO WEEKLY 02/18/20 12/01/21 mcg (50,000 unit) capsule loratadine 10 mg tablet (Claritin) 10 mg PO DAILY 02/18/20 12/01/21 levothyroxine 25 mcg tablet 1 tablet PO DAILY 12/01/21 12/01/21 Allergies Allergy/AdvReac Type Severity Reaction Status Date / Time Sulfa (Sulfonamide AdvReac Intermediate Nausea Verified 10/01/22 15:47 Antibiotics) Review of Systems Review of Systems: Gen.: Denies fevers or chills Eyes: Denies eye pain or visual change ENT: Denies congestion Respiratory: Denies shortness of breath or cough CV: Denies chest pain or palpitations GI: Denies abdominal pain nausea, emesis or diarrhea denies burning, urgency, frequency or hematuria Musculoskeletal: Reports back pain Neuro: Denies numbness, tingling, weakness or focal weakness Skin: Denies rash Except as documented, all other systems reviewed and negative [facility] Past Medical History Medical History Colon cancer screening Diverticulitis GERD (gastroesophageal reflux disease) Kidney stones Surgical History Surgical History History of appendectomy History of cholecystectomy History of hysterectomy Social History Social History Smoking status: Never smoker Alcohol intake: never Substance use: never Substance use type: does not use Living arrangements: with family Spiritual care concerns: No Exam Narrative: APPEARANCE: uncomfortable appearing Head: Normocephalic and atraumatic. EYES: PERRLA/EOMI, conjunctivae clear NOSE: No nasal drainage EARS: External ear normal in appearance THROAT: Oropharynx is clear. Mucous membranes are moist. NECK: Supple. No adenopathy, no masses. RESPIRATORY: Airway patent, respirations nonlabored. Clear to auscultation bilaterally, no rales, rhonchi, wheezing. CARDIOVASCULAR: Regular rate and rhythm without murmurs, rubs, or gallops. ABDOMINAL: There is mild tenderness appreciated in the periumbilical region. MUSCULOSKELETAL: Extremities are warm and well-perfused. Moves all extremities well. No edema. NEURO: Normal speech. No focal neurologic deficits. SKIN: Skin is warm and dry. No rashes. PSYCHIATRIC: Normal affect/mood. Course Vital Signs Vital signs: Vital Signs Temperature 98.4 F 10/01/22 14:10 Pulse Rate 86 10/01/22 14:10 Respiratory Rate 16 10/01/22 14:10 Blood Pressure 152/83 H 10/01/22 14:10 Pulse Oximetry 98 10/01/22 14:10 Temperature 98.4 F 10/01/22 14:10 Pulse Rate 62 10/01/22 19:00 Respiratory Rate 18 10/01/22 19:00 Blood Pressure 161/77 H 10/01/22 19:00 Pulse Oximetry 97 10/01/22 19:00 MDM - Abdominal Pain MDM Narrative Medical decision making narrative: 72-year-old female here for evaluation of right flank and right lower quadrant abdominal pain for the past several days. She is uncomfortable in appearance and has very slight periumbilical abdominal tenderness on exam. Vital signs
[2022-10-01 16:50] LABS: Appearance Urine Clear (Clear); Bacteria Urine None Seen /hpf; Bilirubin Urine Negative (Negative); Blood Urine 3+ (Negative); Color Urine Yellow (Yellow); Glucose Urine UA Negative (Negative); Ketones Urine Negative (Negative); Leukocyte Esterase Ur Negative LEU/UL (Negative); Nitrate Urine Negative (Negative); Non Pathogenic Casts 0-2; Protein Urine Negative (Negative); RBC Urine 51-100 /hpf (0-2); Specific Grav Ur 1.012 (1.001-1.035); Squamous Epithelial Cell Urine None seen /hpf (Few); Urobilinogen Urine 0.2 mg/dL (<2.0); WBC Urine 0-5 /hpf
[2022-10-01] MEDS: SODIUM CHLORIDE 0.9% IV 1,000 ML 999 ML IV CONT (16:51)
[2022-10-01] MEDS: KETOROLAC 15 MG/ML VIAL (*BKC) IV PUSH (16:51)
[2022-10-01 16:52] LABS: Add Urine Microscopic? YES
[2022-10-01] MEDS: fentaNYL CITRATE INJ (*CRX) 100 MCG/2 ML VIAL 50 MCG IV PUSH (17:39)
[2022-10-01 18:25] VITALS: BP 163/86; PULSE 68; RESP 18; O2SAT 98
[2022-10-01 19:00] VITALS: BP 161/77; PULSE 62; RESP 18; O2SAT 97
== END 2022-10-01 19:02 | disposition home or self-care (01) ==
PROVIDERS: Emergency Medicine; Emergency Provider Physician Assistant; PCP Family Medicine
DX: N20.1 Calculus of ureter (principal); K21.9 Gastro-esophageal reflux disease without esophagitis; Z87.442 Personal history of urinary calculi
CPT/HCPCS: 36415; 74018; 74177; 80053; 81001; 83690; 85025; 96361; 96374; 96375; 99284; J1885; J2270; J2405; J3010; J7030; Q9967

== ENCOUNTER 2022-10-04 01:00 | Day surgery (SDC) | payer MEDICARE, SELFPAY ==
--- NOTE | 2022-10-03 15:10 | PC.NURSE ---
Report to the Outpatient Waiting Room, entrance under the green pavilion located off [facility], at time __1300 on date _10/04/22 . Planned Procedure Time: __1500 . Time changes happen often and if your time is changed the preop area will call you the afternoon before. - You and your visitor will be asked to self-screen and do not enter if you have any COVID symptoms. - A mask is optional within the hospital at this time. Patients may have clear liquids (water, carbonated beverages, clear teas, apple juice) until 3 hours prior to surgery with a maximum of 20 ounces. - No food from midnight until time of surgery - Infants may have breast milk until 4 hours before surgery, infant formula 6 hours prior to surgery. - Children will be allowed to drink immediately following surgery. If applicable, please bring a bottle or sippy cup to assist with drinking. Juice, water, soda, and popsicles are readily available. For infants on formula, please bring formula the day of surgery. Pacifiers are allowed. Take the following medications with a SIP of water the morning of surgery: ____LEVOTHYROXINE,, MAY TAKE PAIN PILL IF NEEDED AND ONDANSETRON IF NEEDED DO NOT STOP ANY OF YOUR OTHER PRESCRIPTION MEDICATIONS PRIOR TO SURGERY ?EXCEPT THE FOLLOWING Medications to discontinue per physician Date to take last dose Please no make-up, nail icelandic, hairspray, perfume, deodorant, or body powder the day of surgery. No jewelry (including any body piercings) or valuables the day of surgery, leave them at home. Please take a shower or bath the night before, or the morning of, surgery with an antibacterial soap. Wear comfortable, loose fitting clothing. Children are encouraged to wear pajamas. - Jewelry must be removed prior to entering the operating room. Rings and piercings that are not removed may be cut off. - The hospital will not accept responsibility for valuables. - Please leave all valuables, including medications, at home the day of surgery. If you are going home after surgery, a licensed dumpster driver must drive you home. - NO public transportation without another adult if you receive anesthesia. - We recommend that an adult stay with you for 24 hours following discharge. - We also recommend that you do not drive, make important decision, drink alcoholic beverages, or take any drugs that were not prescribed by your health care provider for at least 24 hours after your discharge time. For Pediatric surgeries, we recommend two adults accompany the child home. Follow any additional instructions given to you from your surgeon. If you or anyone in your household have experienced Covid symptoms in the past week, please notify your surgeon or the nurse liaison at the phone number below for possible testing. Telephone instructions given to PATIENT and asked if any additional questions and then verbalized understanding. Patient advised to call surgeon office or pre surgery nurse liaison [phone] if any additional questions.
[2022-10-03 15:15] VITALS: BMI 27.4
--- NOTE | ~2022-10-04 | XR_ITS ---
EXAMINATION: XR stent kub - surgery DATE: 10/04/2022 14:36 INDICATION: Right internal ureteral stent placement TECHNIQUE: Fluoroscopic images from a right internal ureteral stent placement are submitted for kyle jensen 39 seconds of fluoroscopy time. 4 fluoroscopic images FINDINGS: There is a right double-J internal ureteral stent projecting in expected position, with proximal Valier loop at the level of the renal pelvis and distal loop in the pelvis within the bladder lumen. IMPRESSION: 1. Right internal ureteral stent placement. Please refer to real-time procedural findings for [facility]. Reviewed, dictated and finalized at location L. IMPRESSION: 1. Right internal ureteral stent placement. Please refer to real-time procedu ral findings for details.
--- NOTE | 2022-10-04 06:34 | WPDHPUPDATE1 ---
History and Physical Update Update Date/Time: 10/04/22 06:34 History and Physical has been reviewed, including an updated exam of the patient. There are NO changes in the patient's condition. Risks, benefits, and alternatives have been discussed and questions answered. Patient agrees to proceed with procedure.
[2022-10-04 12:49] VITALS: BMI 27.9
--- NOTE | 2022-10-04 13:27 | P.PNAN_ITS ---
Anes - Initial Pre Proc Eval Procedure: Operation Date: 10/04/22 15:00 Proposed Procedures p Cystoscopy, Right Ureteroscopy, Right Retrograde Pyelogram, Right Stone Extraction, Possible Right Stent Placement, Possible Holmium Laser - Davy Chamberlain MD Date/Time: 10/04/22 13:27 Surgeon: Davy Chamberlain MD Pre Op Diagnosis: right ureteral stone Patient Data Age: 72 Gender: F Height: 1.65 m Weight: 76.1 kg Allergies Allergy/AdvReac Type Severity Reaction Status Date / Time Sulfa (Sulfonamide AdvReac Intermediate Nausea Verified 10/03/22 15:02 Antibiotics) Home Medications Medication Instructions Recorded Confirmed Type ergocalciferol (vitamin D2) 1,250 50,000 unit PO WEEKLY 02/18/20 10/03/22 History mcg (50,000 unit) capsule loratadine 10 mg tablet (Claritin) 10 mg PO DAILY 02/18/20 10/03/22 History levothyroxine 25 mcg tablet 1 tablet PO DAILY 12/01/21 10/03/22 History ondansetron 4 mg disintegrating 4 mg PO Q8H PRN nausea and 10/01/22 10/03/22 Rx tablet vomiting #7 tabs oxycodone 5 mg tablet 5 mg PO Q8H PRN pain #7 tabs 10/01/22 10/03/22 Rx meloxicam 15 mg tablet 15 mg PO PRN PRN Pain 10/03/22 10/03/22 History Patient hx anesthesia problems: post op nausea/vomiting Family hx anesthesia problems: none Results Review: All pre-operative results and documents have been reviewed as part of the pre- operative evaluation. [facility] Past Medical History Medical History Colon cancer screening Diverticulitis GERD (gastroesophageal reflux disease) Kidney stones Surgical History Surgical History History of appendectomy History of cholecystectomy History of hysterectomy Social History Social History Smoking status: Never smoker Alcohol intake: never Substance use: never Substance use type: does not use Living arrangements: with family Spiritual care concerns: No Anes - Eval Final PreProcedure Day of Procedure 10/04/22 13:27 Patient weight: overweight Heart: regular rate and rhythm Lungs: clear to auscultation Airway: Mallampati scale class II Neurological: alert and oriented Last oral intake: >/= 8 hours ASA classification: II Emergent: no Anesthetic plan: proceed Anesthesia type and monitoring: general LMA and standard monitoring Results Review: All pre-operative results and documents have been reviewed as part of the pre- operative evaluation. Informed Consent: The patient's anesthetic plan and its attendant risks and benefits were discussed with the patient/family/POA. Questions were solicited and answers provided to the satisfaction of the patient/family/POA.
[2022-10-04] MEDS: FAMOTIDINE 20 MG/2 ML VIAL IV PUSH (13:37)
[2022-10-04] MEDS: ONDANSETRON INJ 4 MG/2 ML VIAL IV PUSH (13:37)
[2022-10-04] MEDS: LACTATED RINGERS 1,000 ML 30 ML IV CONT ×2 (13:38→15:04)
[2022-10-04] MEDS: ceFAZolin 2 GM/D5W 50 ML 2 GM/50 ML BAG IVPB (14:00)
[2022-10-04] MEDS: LIDOCAINE HCL 2% GEL UROJET 10 ML PKG MUCOUS MEM (14:12)
--- NOTE | 2022-10-04 14:37 | W.PM.PROC2 ---
Procedure Note - Detailed Date of Procedure 10/04/22 Pre-op Diagnosis Right ureteral stone Post-op Diagnosis Same Procedure Performed Cystoscopy, right ureteroscopy with laser lithotripsy and stone extraction, right ureteral stent placement Surgeon Davy Chamberlain MD Anesthesia General Description of Procedure patient is brought to the operative suite where she has prepped draped in routine sterile fashion while in dorsal lithotomy position after the uneventful induction of a general LMA anesthetic. Cystoscopy is undertaken with a 19 F rigid cystoscope. Bladder neck and urethra endoscopically normal. She has a normal bladder without intravesical foreign body or neoplasm. There was a single orthotopic ureteral orifices bilaterally. A 0.035 in glidewire was advanced into the right renal pelvis. I can feel or impacted stone in the right mid ureter at the iliac vessels. Dilated the distal ureter with an 8 F 10 F dilator. Ureteroscopy was undertaken with a short tapered semi-rigid ureteral scope. There her mid ureteral stone is quite impacted. I did fracture it using a dusting technique and a 200 micron holmium laser fiber. All chips were evacuated with either irrigation or a 1.9 F disposable basket. I placed a 4.8 F variable length stent with proximal coil in the renal pelvis and the distal coil in the bladder. Scopes and wires removed she was taken recovery room good condition. Drains Yes Packing No Pathology Yes Complications No immediate complications Condition Stable Disposition PACU
[2022-10-04 14:41] VITALS: BP 139/76; PULSE 67; RESP 16; TEMP 36.4; O2SAT 100
[2022-10-04 14:55] VITALS: BP 137/89; PULSE 59; RESP 18; O2SAT 100
[2022-10-04 15:10] VITALS: BP 155/80; PULSE 61; RESP 16; O2SAT 99
[2022-10-04 15:16] VITALS: BP 170/80; PULSE 62; RESP 20
[2022-10-04 15:45] VITALS: BP 162/79; PULSE 55; RESP 20
[2022-10-04 16:05] VITALS: BP 148/70
== END 2022-10-04 16:19 | disposition home or self-care (01) ==
PROVIDERS: PCP Family Medicine; Visit Provider Urology
PROC: (CPT 52352; principal; 2022-10-04 15:00)
DX: N20.1 Calculus of ureter (principal); E78.00 Pure hypercholesterolemia, unspecified; E03.9 Hypothyroidism, unspecified
CPT/HCPCS: 52356; 82365; 88300; C1769; C2617; J0690; J1100; J2405; J2704; J7120

== ENCOUNTER 2023-03-07 15:23 | Outpatient (CLI) | payer MEDICARE, SELFPAY ==
--- NOTE | ~2023-03-07 | XR_ITS ---
EXAMINATION: XR abdomen/kub 1V INDICATION: Bilateral kidney stones TECHNIQUE: Supine views of the abdomen were obtained on 2 radiographs. COMPARISON: 10/01/2022 FINDINGS: No definite urolithiasis is identified. There are phleboliths of the left pelvis. Cholecyst ectomy clips are noted. There is chronic elevation of the right hemidiaphragm. IMPRESSION: 1. No definite urolithiasis identified. Reviewed, dictated and finalized at location F.
== END 2023-03-07 15:24 | disposition home or self-care (01) ==
PROVIDERS: PCP Family Medicine; Visit Provider Urology
DX: N20.0 Calculus of kidney (principal)
CPT/HCPCS: 74018

== ENCOUNTER 2024-06-11 14:03 | Outpatient (CLI) | payer MEDICARE, SELFPAY ==
--- NOTE | ~2024-06-11 | XR_ITS ---
CHEST RADIOGRAPH, PA AND LATERAL CLINICAL HISTORY: R05.9 - Cough, unspecified . COMPARISON: 12/01/2021 TECHNIQUE: PA and lateral views of the chest. FINDINGS The cardiomediastinal silhouette is unremarkable. The lungs are clear. Visualized osseous structures and soft tissues are unremarkable. IMPRESSION: No focal infiltrate or effusion. Reviewed, dictated and finalized at location A. MOLDER HAND
[2024-06-11 15:18] LABS: Basophils Absolute Auto 0.1 K/mm3 (0.0-0.1); Basophils Percent Auto 0.9 % (0.2-1.2); Eosinophils Absolute Auto 0.2 K/mm3 (0-0.3); Eosinophils Percent Auto 1.7 % (0-4.4); Hematocrit 47.9 % (37.0-47.0); Hemoglobin 15.6 g/dL (12.0-15.0); Immature Granulocyte Absolute 0.04 K/mm3 (0.00-0.031); Immature Granulocyte Percent A 0.4 % (0-0.5); Lymphocytes Percent Auto 26.7 % (18.3-44.2); Mean Corpuscular HGB Conc 32.6 g/dl (32-36); Mean Platelet Volume 9.9 fl (7.4-10.4); Monocytes Absolute Auto 0.6 K/mm3 (0.1-0.6); Monocytes Percent Auto 6.8 % (2.6-8.5); Neutrophils Percent Auto 63.5 % (45.5-73.1); Platelet Count Result 294 k/mm3 (150-375); Red Blood Count 5.38 M/mm3 (4.2-5.4); Red Cell Distribution Width 13.3 % (11.5-14.5); White Blood Count 9.4 K/mm3 (4.5-10.0)
[2024-06-11 15:52] LABS: Iron 106 ug/dL (37-170)
[2024-06-11 16:01] LABS: Percent Iron Saturation 39 % (20-50)
[2024-06-11 16:11] LABS: Alanine Aminotransferase 27 U/L (6-35); Albumin Level 4.2 g/dL (3.5-5.1); Alkaline Phosphatase 63 U/L (38-126); Anion Gap 9 mmol/L (4-12); Aspartate Amino Transferase 34 U/L (14-36); Bilirubin,Total 0.7 mg/dL (0.2-1.3); Blood Urea Nitrogen 15 mg/dL (7-17); Calcium 9.9 mg/dL (8.4-10.2); Carbon Dioxide 25 mmol/L (22-30); Chloride 104 mmol/L (98-107); Estimated Glomerular Filt Rate 58; Glucose 102 mg/dL (65-110); Potassium 4.1 mmol/L (3.4-5.0); Sodium 138 mmol/L (137-145)
[2024-06-11 16:30] LABS: Vitamin D 25 Hydroxy 43.5 ng/mL
[2024-06-11 17:16] LABS: Folic Acid 6.6 ng/mL (2.76->20)
--- OUTSIDE RECORDS SUMMARY | 2024-06-12 05:33 | XMS_ITS | Referral Summary ---
Author Organization [facility] Health Address [address] [place] [address] Care Team Providers Care Cyber Forensic Specialist Name Role Phone Dg Cruz MD Primary Care Provider [phone] Source Comments [facility],non-owned Affiliates and Associated Physician Practices is amultiple site organization consisting of ambulatory clinics and hospital sitesin [place], [place], [place] and [place]. This disclosure is being madepursuant to the Care Everywhere program and may not contain all information available regarding this patient. Last updated 18.[facility] [employer] Allergies No known active allergies Social History Tobacco Use Types Packs/Day Years Used Date Smoking Tobacco: Never Assessed Sex and Gender Information Value Date Recorded Sex Assigned at Not on file Gender Identity Not on file Sexual Orientation Not on file Plan of Treatment Not on file Care Teams Cyber Forensic Specialist Relationship Specialty Start Date End Date D[place] [address] [place] [address] PCP - General 01/17/18
--- OUTSIDE RECORDS SUMMARY | 2024-06-12 05:33 | XMS_ITS | Clinical Summary ---
Author Organization [facility] Health Address [address] [place] [address] Care Team Providers Care Rn Urology Name Role Phone gD Cruz MD Primary Care Provider [phone] Source Comments [facility],non-owned Affiliates and Associated Physician Practices is amultiple site organization consisting of ambulatory clinics and hospital sitesin [place], [place], [place] and [place]. This disclosure is being madepursuant to the Care Everywhere program and may not contain all information available regarding this patient. Last updated 18.[facility] [employer] Allergies No known active allergies Social History Tobacco Use Types Packs/Day Years Used Date Smoking Tobacco: Never Assessed Sex and Gender Information Value Date Recorded Sex Assigned at Not on file Gender Identity Not on file Sexual Orientation Not on file Plan of Treatment Health Maintenance Due Date Last Done Comments BONE DENSITY TESTING 1952 COLOGUARD (AGES 45-75) - COL ON CA SCREENING 1952 COLON MONITORING 1952 COLONOSCOPY - COLON CA SCREENING 1952 CT COLONOGRAPHY - COLON CA SCREENING 1952 Colorectal Cancer Screening 1952 FIT - COLON CA SCREENING 1952 FLEX SIG - COLON CA SCREENING 1952 LIPID TESTING 1952 MAMMOGRAM 1952 HEPATITIS C SCREENING 01/25/1970 DTAP/TDAP/TD VACCINES (1 - Tdap) 01/29/1971 PNEUMOCOCCAL VACCINE 50+ (1 of 1 - PCV) 01/29/2002 ZOSTER VACCINE (1 of 2) 01/29/2002 COVID-19 VACCINE (2023-2 5 season) 2024 INFLUENZA VACCINE (#1) 2024 DEPRESSION SCREENING 05/20/2024 Respiratory Syncytial Virus (RSV) Vaccine Pt: or over 60 yrs (1 - 1-dose 75+ series) 01/29/2027 HEPATITIS B VACCINE Aged Out No longe r eligible based on patient's age to complete this topic HIB VACCINE Aged Out No longer eligi ble based on patient's age to complete this topic HPV VACCINE Aged Out No longer eligi ble based on patient's age to complete this topic MENINGOCOCCAL (Group B) VACCINE Aged Out No longer eligible based on patient's age to complete this topic MENINGOCOCCAL VACCINE Aged Out No leidy jacquelyn eligible based on patient's age to complete this topic Care Teams Rn Urology Relationship Specialty Start Date End Date Dg Cruz MD [address] [place] [address] PCP - General 01/17/18
--- OUTSIDE RECORDS SUMMARY | 2024-06-12 05:33 | XMS_ITS | Patient Health Summary ---
Author Organization [facility] Address [address] [place] [address] Care Team Providers Care Mixing Plant Dumper Name Role Phone Dg Cruz MD Primary Care Provider [phone] [facility],non-owned Affiliates and Associated Physician Practices is amultiple site organization consisting of ambulatory clinics and hospital sitesin [place], [place], [place] and [place]. This disclosure is being madepursuant to the Care Everywhere program and may not contain all information available regarding this patient. Last updated 18.[facility] Allergies No known active allergies Social History Tobacco Use Types Packs/Day Years Used Date Smoking Tobacco: Never Assessed Sex and Gender Information Value Date Recorded Sex Assigned at Not on file Gender Identity Not on file Sexual Orientation Not on file Procedures * DERMATOPATHOLOGY(Performed 11/13/2021) Results * DERMATOPATHOLOGY (11/13/2021 12:00 AM CDT) Case Report Dermatopathology Report ? Case: [id number] ? Authorizing Provider: ??Raji Armas MD ?Collected: ? 11/13/2021 12:00 AM ? Ordering Location: ? [facility] DermPath Lab ?Received: ?11/14/2021 04:11 PM ? Pathologist: ? Lila Andrade MD ? Specimen: ?Skin, left thigh ? 2 3:39 PM CDT DERMATOPATHOLOGY LABORATORY Final Diagnosis Specimen A. SKIN, left thigh: SQUAMOUS CELL CARCINOMA IN SITU, PRESENT AT THE BASE OF THE SPECIMEN (D04.72) (see microscopic description and comment) 2 3:39 PM CDT DERMATOPATHOLOGY LABORATORY Clinical History SCCA vs PN. Path # [id number]. 2 3:39 PM CDT DERMATOPATHOLOGY LABORATORY Gross Description Specimen A: Received is one formalin filled container labeled with the patient's name and designated left thigh. The specimen consists of a shave biopsy measuring [id number]. Jar 0. 2 3:39 PM CDT DERMATOPATHOLOGY LABORATORY Microscopic Description Specimen A. SKIN, left thigh: The epidermis shows parakeratosis, full thickness disorderly maturation of keratinocytes, mitoses at different levels, and dyskeratotic cells. The lesion extends to the base of the biopsy. COMMENT: An invasive squamous cell carcinoma cannot be ruled out. 2 3:39 PM CDT DERMATOPATHOLOGY LABORATORY Disclaimer An external and internal positive and negative controls are appropriate for the histochemical, immunohistochemical and immunofluorescence stain(s) in this case (if any), except where stated explicitly. The performance characteristics of the stain(s) cited in this report were developed and its performance characteristic determined by the Dermatopathology Laboratory at [facility], directed by Dr. Zoraida Clinton. These tests need not be, and therefore are not, approved by the [place] Food and Drug Administration. The tests are used for clinical purposes. Billing Codes Specimen Charges Stain Charges 09002 1 2 3:39 PM CDT DERMATOPATHOLOGY LABORATORY Embedded Images 2 3:39 PM CDT DERMATOPATHOLOGY LABORATORY Pathology/Cytolog y TISSUE SPECIMEN FROM SKIN / Unknown 11/13/2021 11/14/2021 4:11 PM CDT Raji Armas MD LAB - PATHOLOGY/CYTO LOGY ORDERABLES DERMATOPATHOLOGY LABORATORY [facility] - Department of Dermatology [address], [address] Floor [address] [phone] Care Teams Mixing Plant Dumper Relationship Specialty Start Date End Date Dg Cruz MD [address] [place] [address] PCP - General 01/17/18
--- OUTSIDE RECORDS SUMMARY | 2024-06-12 05:34 | XMS_ITS | Encounter Summary ---
Author Organization [facility] Address [address] [place] [address] Care Team Providers Care Stained Glass Artist Name Role Phone Giuseppe Martin MD Primary Care Provider Encounter Details Date Type Department Care Team (Late st Contact Info) Description 12/10/2006 Outpatient [facility] [address] [place] [address] Jacob Andrade ([facility]) Social History Tobacco Use Types Packs/Day Years Used Date Smoking Tobacco: Never Assessed Comments Unknown Sex and Gender Information Value Date Recorded Sex Assigned at Not on file Legal Sex Female 4:11 AM COMPLIANCE ANALYST Gender Identity Not on file Sexual Orientation Not on file documented as of this encounter Plan of Treatment Not on file documented as of this encounter Visit Diagnoses Not on filedocumented in this encounter Care Teams Stained Glass Artist Relationship Specialty Start Date End Date Giuseppe Martin MD [address] [place] [address] PCP - General 06/21/09 documented as of this encounter
--- OUTSIDE RECORDS SUMMARY | 2024-06-12 05:34 | XMS_ITS | Encounter Summary ---
Author Organization [facility] Address [address] [place] [address] Care Team Providers Care Manager Inventory Name Role Phone Giuseppe Martin MD Primary Care Provider Encounter Details Date Type Department Care Team (Late st Contact Info) Description 10/21/2002 Outpatient [facility] [address] [place] [address] Jacob Andrade ([facility]) Social History Tobacco Use Types Packs/Day Years Used Date Smoking Tobacco: Never Assessed Comments Unknown Sex and Gender Information Value Date Recorded Sex Assigned at Not on file Legal Sex Female 4:11 AM MANAGER DISCOVERY Gender Identity Not on file Sexual Orientation Not on file documented as of this encounter Plan of Treatment Not on file documented as of this encounter Visit Diagnoses Not on filedocumented in this encounter Care Teams Manager Inventory Relationship Specialty Start Date End Date Giuseppe Martin MD [address] [place] [address] PCP - General 06/21/09 documented as of this encounter
--- OUTSIDE RECORDS SUMMARY | 2024-06-12 05:34 | XMS_ITS | Continuity of Care Document ---
Author Organization Located within [facility] Address [address] [place] [address] [address] [place] [address] Phone Care Team Providers Care Slab Depiler Operator Name Role Phone Sharmin Boucher Unavailable Unavailable Advance Directives Directive Yes / No Effective Date File Name No Information Encounters Encounter Description Practice Location Reason(s) For Visit Diagnoses Date Provider Providers Copied on Encounter [facility], [address] [place] [address] [address], [place], [place], [id number], [place] tel:[phone] [facility] No Information [address] Finney. [address] , [address], [place], [address], [place]. tel:[phone] Family History Family Member Type Diagnosis Age At Onset No Information Payers Payer name Insurance type Covered libertarian ID Authoriza tion(s) No Information Social History Type Description Quantity Date Captured Comments Sex Female Smoking Status No Information Chief Complaint And Reason For Visit No Information Reason For Referral Reason For Referral No Information History Of Present Illness Encounter Date Complaint History Of Prese nt Illness No Information Functional Status Date Functional Assessmen t No Information Instructions Date Instruction Additional Infor mation No Information Assessments Type Assessment Date No Information Patient Care Teams Name Effective Dates (start - stop) Status Members No Information
--- OUTSIDE RECORDS SUMMARY | 2024-06-12 05:34 | XMS_ITS | Encounter Summary ---
Author Organization [facility] Address [address] [place] [address] Care Team Providers Care Nicking Machine Operator Name Role Phone Giuseppe Martin MD Primary Care Provider Encounter Details Date Type Department Care Team (Late st Contact Info) Description 06/10/2024 External Device Data [facility] ABSTRACTION Provider, Abstract NO ADDRESS ON FILE Social History Tobacco Use Types Packs/Day Years Used Date Smoking Tobacco: Never Smokeless Tobacco: Never Alcohol Use Standard Drinks/Week Comments No 0 (1 standard drink = 0.6 oz pur e alcohol) Comments No Sex and Gender Information Value Date Recorded Sex Assigned at Not on file Legal Sex Female 4:11 AM POURING CRANE OPERATOR Gender Identity Not on file Sexual Orientation Not on file Occupation Industry Job Start Date Job End Date Not on file Not on file Not on file Not on file documented as of this encounter Plan of Treatment Not on file documented as of this encounter Visit Diagnoses Not on filedocumented in this encounter Care Teams Nicking Machine Operator Relationship Specialty Start Date End Date Giuseppe Martin MD [address] [place] [address] PCP - General 06/21/09 documented as of this encounter
--- OUTSIDE RECORDS SUMMARY | 2024-06-12 05:34 | XMS_ITS | Encounter Summary ---
Author Organization [facility] Address [address] [place] [address] Care Team Providers Care Hoisting Engineer Pile Driving Name Role Phone Giuseppe Martin MD Primary Care Provider Encounter Details Date Type Department Care Team (Late st Contact Info) Description 07/10/1999 Outpatient [facility] [address] [place] [address] Jacob Andrade ([facility]) Social History Tobacco Use Types Packs/Day Years Used Date Smoking Tobacco: Never Assessed Comments Unknown Sex and Gender Information Value Date Recorded Sex Assigned at Not on file Legal Sex Female 4:11 AM VICE PRESIDENT PHARMACY Gender Identity Not on file Sexual Orientation Not on file documented as of this encounter Plan of Treatment Not on file documented as of this encounter Visit Diagnoses Not on filedocumented in this encounter Care Teams Hoisting Engineer Pile Driving Relationship Specialty Start Date End Date Giuseppe Martin MD [address] [place] [address] PCP - General 06/21/09 documented as of this encounter
--- OUTSIDE RECORDS SUMMARY | 2024-06-12 05:34 | XMS_ITS | Encounter Summary ---
Author Organization [facility] Address [address] [place] [address] Care Team Providers Care Room Service Attendant Name Role Phone Dg Cruz MD Primary Care Provider [phone] Encounter Details Date Type Department Care Team (Late st Contact Info) Description 11/14/2021 Lab Requisition [facility] Care DermPath Lab [address] [place] [address] Raji Armas MD [address] [place] [address] Social History Tobacco Use Types Packs/Day Years Used Date Smoking Tobacco: Never Assessed Sex and Gender Information Value Date Recorded Sex Assigned at Not on file Gender Identity Not on file Sexual Orientation Not on file documented as of this encounter Plan of Treatment Not on file documented as of this encounter Procedures Procedure Name Priority Date/Time Associated Diagnosis Comments DERMATOPATHOLOGY Routine 11/13/2021 12:0 0 AM CDT documented in this encounter Results * DERMATOPATHOLOGY (11/13/2021 12:00 AM CDT) Case Report Dermatopathology Report ? Case: [id number] ? Authorizing Provider: ??Raji Armas MD ?Collected: ? 11/13/2021 12:00 AM ? Ordering Location: ? [facility] DermPath Lab ?Received: ?11/14/2021 04:11 PM ? Pathologist: ? Lila Andrade MD ? Specimen: ?Skin, left thigh ? 2 3:39 PM CDT DERMATOPATHOLOGY LABORATORY Final Diagnosis Specimen A. SKIN, left thigh: SQUAMOUS CELL CARCINOMA IN SITU, PRESENT AT THE BASE OF THE SPECIMEN (D04.72) (see microscopic description and comment) 2 3:39 PM CDT DERMATOPATHOLOGY LABORATORY Clinical History SCCA vs PN. Path # [id number]. 2 3:39 PM CDT DERMATOPATHOLOGY LABORATORY Gross Description Specimen A: Received is one formalin filled container labeled with the patient's name and designated left thigh. The specimen consists of a shave biopsy measuring [id number]. Jar 0. 2 3:39 PM CDT DERMATOPATHOLOGY [...] characteristic determined by the Dermatopathology Laboratory at [facility], directed by Dr. Zoraida Clinton. These tests need not be, and therefore are not, approved by the [place] Food and Drug Administration. The tests are used for clinical purposes. Billing Codes Specimen Charges Stain Charges 02381 1 2 3:39 PM CDT DERMATOPATHOLOGY LABORATORY Embedded Images 2 3:39 PM CDT DERMATOPATHOLOGY LABORATORY Pathology/Cytolog y TISSUE SPECIMEN FROM SKIN / Unknown 11/13/2021 11/14/2021 4:11 PM CDT Raji Armas MD LAB - PATHOLOGY/CYTO LOGY ORDERABLES DERMATOPATHOLOGY LABORATORY [facility] Department of Dermatology [facility] Medicine [address] [place] [address], [address] [phone] documented in this encounter Visit Diagnoses Not on filedocumented in this encounter Care Teams Room Service Attendant Relationship Specialty Start Date End Date Dg Cruz MD [address] [place] [address] PCP - General 01/17/18 documented as of this encounter
--- OUTSIDE RECORDS SUMMARY | 2024-06-12 05:34 | XMS_ITS | Clinical Summary ---
Author Organization [facility] Address [address] [place] [address] Care Team Providers Care Deck Specialist Name Role Phone Giuseppe Martin MD Primary Care Provider Allergies No known active allergies Medications DICLOFENAC SODIUM ORAL Take by mouth 1 time daily as needed. Active loratadine (CLARITIN) 10 mg tablet Take 10 mg by mouth daily. Active bifidobacterium infantis (ALIGN) 4 mg Capsule Take by mouth. Active ERGOTAMINE TARTRATE/CAFFEI NE (ERGOTAMINE-CAF FEINE-BUTALBITA L-ACETAMINOPHEN ) 1-60-15-300 mg oral capsule compound Take 2 capsules at onset of headache, may repeat once after 2 hr PRN; MAX 4 caps in 24 hr, MAX 8 caps a week. 24 Capsule 7 Active [place]- Ergotamine 1/Caffeine 60/Butalbital 15/Acetaminophe n 300 mg capsule compound Take 2 capsules by mouth at onset of headache. May repeat once in 2 hours if needed. Maximum of 4 capsules in 24 hours. 24 Capsule 2 06/04/2024 11:08 AM STEREO OPERATOR 5 Active [place]- Ergotamine 1/Caffeine 60/Butalbital 15/Acetaminophe n 300 mg capsule compound Take 2 capsules by mouth at onset of headache. May repeat once in 2 hours if needed. Maximum of 4 capsules in 24 hours. 24 Capsule 2 12/04/2023 4:37 PM CDT 4 06/02/19 25 Discontinu ed(Reorder ) Active Problems Problem Noted Date Diagnosed Date Hyperlipidemia 01/22/2012 Osteoporosis 02/22/2009 Degenerative disc disease 02/22/2009 Migraine Overview (06/14/2010): Updating IMO/ICD9 Code and Description Encounters Date Type Department Care Team Description 06/10/2024 External Device Data [facility] ABSTRACTION Provider, Abstract 03/18/2024 External Device Data [facility] ABSTRACTION Provider, Abstract from Last 3 Months Family History Medical History Relation Name Comments High Cholesterol Father Hypertension Father High Cholesterol Mother Hypertension Mother Migraines Mother Relation Name Status Comments Father Mother Social History Tobacco Use Types Packs/Day Years Used Date Smoking Tobacco: Never Smokeless Tobacco: Never Alcohol Use Standard Drinks/Week Comments No 0 (1 standard drink = 0.6 oz pur e alcohol) Comments No Sex and Gender Information Value Date Recorded Sex Assigned at Not on file Legal Sex Female 4:11 AM STEREO OPERATOR Gender Identity Not on file Sexual Orientation Not on file Occupation Industry Job Start Date Job End Date Not on file Not on file Not on file Not on file Last Filed Vital Signs Vital Sign Reading Time Taken Comments Blood Pressure 118/84 04/19/2015 1:46 PM STEREO OPERATOR lef t arm Pulse 64 04/19/2015 1:46 PM STEREO OPERATOR Temperature - - Respiratory Rate - - Oxygen Saturation - - Inhaled Oxygen Concentration - - Weight 76.7 kg (169 lb) 04/19/2015 1:46 PM STEREO OPERATOR Height 165.1 cm (5' 5 ) 04/19/2015 1:46 PM STEREO OPERATOR Body Mass Index 28.12 04/19/2015 1:46 PM STEREO OPERATOR Plan of Treatment Health Maintenance Due Date Last Done Comments DTAP/TDAP/TD VACCINES (1 - Tdap) 01/29/1971 BREAST CANCER SCREENING 1992 COLORECTAL SCREENING 01/29/1997 Colorectal Cancer Screening 01/29/1997 FIT-DNA Q 3 years 01/29/1997 FIT/FOBT Q 1 year 01/29/1997 Flex Sig/CT Colonography Q 5 years 01/29/1997 PNEUMOCOCCAL VACCINE 65+ YEARS (1 of 1 - PCV) 01/30/20 02 ZOSTER VACCINE (1 of 2) 01/29/2002 OSTEOPOROSIS SCREENING 01/29/2017 INFLUENZA VACCINE (#1) 2023 RSV VACCINE (60+ or ) (1 - 1-dose 75+ series) 01/29/2027 Insurance BCBS BLUE ACCESS/TRUE BLUE PPO RX [employer] RX Member Subscriber Plan / Payer (Ef fective 2017-Present) Name:Rosa Elena Greene Relation to Subscriber:Self Name:Rosa Elena Greene Payer ID:Not on file Group ID:[id number] Type:RX Medicare Part D Address: [address] [address] Care Teams Deck Specialist Relationship Specialty Start Date End Date Giuseppe Martin MD [address] [place] [address] PCP - General 06/21/09
--- OUTSIDE RECORDS SUMMARY | 2024-06-12 05:34 | XMS_ITS | Encounter Summary ---
Author Organization [facility] Address [address] [place] [address] Care Team Providers Care Program Coordinator For Residence Life Name Role Phone Giuseppe Martin MD Primary Care Provider Encounter Details Date Type Department Care Team (Late st Contact Info) Description 08/28/2005 Outpatient [facility] [address] [facility] [address] [place] [address] Jacob Andrade ([facility]) Social History Tobacco Use Types Packs/Day Years Used Date Smoking Tobacco: Never Assessed Comments Unknown Sex and Gender Information Value Date Recorded Sex Assigned at Not on file Legal Sex Female 4:11 AM EMD TEACHER Gender Identity Not on file Sexual Orientation Not on file documented as of this encounter Plan of Treatment Not on file documented as of this encounter Visit Diagnoses Not on filedocumented in this encounter Care Teams Program Coordinator For Residence Life Relationship Specialty Start Date End Date Giuseppe Martin MD [address] [place] [address] PCP - General 06/21/09 documented as of this encounter
--- OUTSIDE RECORDS SUMMARY | 2024-06-12 05:34 | XMS_ITS | Encounter Summary ---
Author Organization [facility] Address 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
--- OUTSIDE RECORDS SUMMARY | 2024-06-12 05:34 | XMS_ITS | Encounter Summary ---
Author Organization [facility] Address [address] [place] [address] Care Team Providers Care Radiological Technician Name Role Phone Giuseppe Martin MD Primary Care Provider Encounter Details Date Type Department Care Team (Late st Contact Info) Description 09/26/[address] 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
--- OUTSIDE RECORDS SUMMARY | 2024-06-12 05:34 | XMS_ITS | Referral Summary ---
Author Organization [facility] Medical [facility] [address] [place] [address] Care Team Providers Care Script Developer Name Role Phone Tyrell Barrera MD Primary Care Provider [phone] Encounters Date Type Department Care Team Description 05/19/2024 2:06 PM SIX PACK PACKER - 05/19/2024 11:59 PM SIX PACK PACKER Hospital Encounter [facility] Breast Imaging [address] [place] [phone] Screening mammogram, encounter for Discharge Disposition: Discharge to home or self care 04/07/2024 1:00 PM SIX PACK PACKER Infusion [facility] [address] [place] [phone] Age-related osteoporosis without current pathological fracture (Primary Dx) 04/02/2024 7:17 PM SIX PACK PACKER - 04/02/2024 11:59 PM SIX PACK PACKER Hospital Encounter [address] [address] Age-related osteoporosis without current pathological fracture Discharge Disposition: Discharge to home or self care 04/02/2024 1:30 PM SIX PACK PACKER Lab [facility] Outpatient Lab at [address] [address] Age-related osteoporosis without current pathological fracture (Primary Dx) 03/30/2024 Orders Only [facility] [address] [place] [address] [address] [place] [phone] Marianne Castillo RN from Last 3 Months Allergies Active Allergy Reactions Criticality Noted Date Comments Sulfa (Sulfonamide Antibiotics) Nausea & Vomiting Low 05/17/2015 Medications Bifidobacterium infantis (ALIGN) 4 mg capsule USE DIRECTED. 9 Active meloxicam (MOBIC) 15 mg tablet take tablet prn Active ergotamine tartrate/caffeine (ERGOTAMINE-CAFFE INE ORAL) Take 2 capsules at onset of headache, may repeat once after 2 hr PRN; MAX 4 caps in 24 hr, MAX 8 caps a week. 7 Active levothyroxine (SYNTHROID) 25 mcg tablet Take 1 tablet (25 mcg total) by mouth daily Active amoxicillin (AMOXIL) 875 mg tablet TK 1 T PO Q 12 H TAT Active azithromycin (ZITHROMAX) 250 mg tablet TAKE 2 TABLETS (500 MG) BY ORAL ROUTE ONCE DAILY FOR 1 DAY THEN 1 TABLET (250 MG) BY ORAL ROUTE ONCE DAILY FOR 4 DAYS Active famotidine (PEPCID) 40 mg tablet Take 1 tablet (40 mg total) by mouth daily 4 Active fluconazole (DIFLUCAN) 150 mg tablet TAKE 1 TABLET BY MOUTH DAILY X 5 DAYS Active triamcinolone (KENALOG) 0.1 % cream APPLY TOPICALLY TO AFFECTED AREAS TWICE DAILY FOR UP TO 2 WEEKS NEEDED Active nystatin cream APPLY TOPICALLY TO THE AFFECTED AREA TWICE DAILY NEEDED Active neomycin-polymyxi n B-dexAMETHasone (MAXITROL) 3.5 mg/g-10,000 unit/g-0.1 % ointment LIZBETH A SMALL AMT TO LOWER LID POCKET OF OD ONCE D IN THE RAVINDRA Active ketoconazole (NIZORAL) 2 % cream APPLY TOPICALLY TO THE AFFECTED AREA EVERY MORNING 4 Active losartan (COZAAR) 100 mg tablet Take 1 tablet (100 mg total) by mouth daily Active montelukast (SINGULAIR) 10 mg tablet Take 1 tablet every day by oral route. Active hydrocortisone 2.5 % cream APPLY TOPICALLY TO THE AFFECTED AREA EVERY NIGHT AT BEDTIME NEEDED 4 Active hydrOXYzine (ATARAX) 50 mg tablet TK 1 T PO QHS PRF INSOMNIA/STRES S Active ergocalciferol (VITAMIN D) 50,000 unit capsuleIndication s:Age-related osteoporosis without current pathological fracture Take 1 capsule (50,000 Units total) by mouth every 2 (two) weeks 12 capsule 1 4 01/03/20 25 Active Active Problems Problem Noted Date Diagnosed Date Age-related osteoporosis wit hout current pathological fracture 07/08/2019 Social History Tobacco Use Types Packs/Day Years Used Date Smoking Tobacco: Never Smokeless Tobacco: Never Tobacco Cessation:Counseling Given: Not Answered Personal Safety Answer Date Recorded Have you ever been in or are you currently in a harmful physical or emotional relationship or is someone making you feel afraid or unsafe? Denies 04/07/2024 Comments No Sex and Gender Information Value Date Recorded Sex Assigned at Not on file Legal Sex Female 8:03 PM SIX PACK PACKER Gender Identity Not on file Sexual Orientation Not on file Last Filed Vital Signs Vital Sign Reading Time Taken Comments Blood Pressure 144/75 04/07/2024 1:01 PM SIX PACK PACKER Pulse 74 04/07/2024 1:01 PM SIX PACK PACKER Temperature 35.3 ??C (95.6 ??F) 04/07/2024 1:01 PM CS T Respiratory Rate 16 04/07/2024 12:59 PM SIX PACK PACKER Oxygen Saturation 96% 04/07/2024 1:01 PM SIX PACK PACKER Inhaled Oxygen Concentration - - Weight 78.2 kg (172 lb 8 oz) 04/07/2024 12:59 PM SIX PACK PACKER Height 162.6 cm (5' 4 ) 12/31/2023 1:04 PM CDT Body Mass Index 29.61 12/31/2023 1:04 PM CDT Plan of Treatment Not on file Procedures Procedure Name Priority Date/Time Associated Diagnosis Comments SCREENING MAMMOGRAM BILATERAL W CONSTANTIN Schedule Routine, Read Routine (OP Routine) 05/19/2024 2:36 PM SIX PACK PACKER Screening mammogram, encounter for EGFR Routine 04/02/2024 12:00 PM SIX PACK PACKER Age-related osteoporosis without current pathological fracture BASIC METABOLIC PANEL Routine 04/02/2024 12:00 PM SIX PACK PACKER Age-related osteoporosis without current pathological fracture DEXA TBS AXIAL SKELETON BONE DENSITY 1 OR MORE SITES Schedule Routine, Read Routine (OP Routine) 12/31/2023 1:15 PM CDT Age-related osteoporosis without current pathological fracture from Last 3 Months or Most Recently Relevant to Health Maintenance Results * Screening Mammogram Bilateral W Constantin (05/19/2024 2:36 PM SIX PACK PACKER) Anatomical Region Laterality Modality Breast Bilateral Mammography Impressions 05/19/2024 3:04 PM SIX PACK PACKER BI-RADS?? ATLAS category (overall): 2 - Benign There is no mammographic evidence of malignancy. A 1 year screening mammogram is recommended. The patient has been or will be contacted. We recommend annual screening mammography for women at average risk of breast cancer beginning at age 40, based on guidelines of the [employer] (ACR Practice Parameter for the Performance of Screening and Diagnostic Mammography) and [place]. For women with and elevated risk of breast cancer, please refer to the ACR Practice Parameter for specific screening recommendations. The patient will be entered into a reminder system with a target due date of 1 year for her next screening exam. Narrative 05/19/2024 3:04 PM SIX PACK PACKER Screening Mammogram Bilateral W Constantin: 05/19/24 The study was acquired using full field digital technology and interpreted from soft copy. 2D digital mammographic views, as well as 3D digital tomosynthesis were performed in the CC and MLO projections. CLINICAL: ??Screening mammogram, encounter for. ??No relevant medical history has been documented for this patient. ??History of breast cancer in Mother's Sister. COMPARISONS: 05/01/2023 Screening Mammogram Bilateral W Constantin 04/26/2022 Screening Mammogram Bilateral W Constantin 02/22/2021 Screening Mammogram Bilateral W Constantin 11/25/2019 Screening Mammogram Bilateral W Constantin 08/12/2018 Screening Mammogram Bilateral W Constantin BREAST TISSUE: The breasts are almost entirely fatty. FINDINGS: There are benign calcifications in both breasts. No suspicious masses, suspicious calcifications, or other suspicious findings are seen within either breast. There has been no suspicious change. us Self Screening Mammogram IMG MAMMO PROCEDURES Fi nal Result * eGFR (04/02/2024 12:00 PM SIX PACK PACKER) eGFR 75 >=60 mL/min/1. 73 m2 Comment: Interpretive Data Reference Interval Normal ?>/= 90 mL/min/1.73m2 Mildly decreased* ? 60 - 89 mL/min/1.73m2 Mildly to moderately decreased ?45 - 59 mL/min/1.73m2 Moderately to severely decreased ??30 - 44 mL/min/1.73m2 Severely decreased ?15 - 29 mL/min/1.73m2 Kidney Failure ?< 15 ??mL/min/1.73m2 *Relative to young adult level Estimated glomerular filtration rate is determined by the 2020 CKD-EPI equation recommended by the National Kidney Foundation (A Unifying Approach to GFR Estimation: Recommendations of the NKF-ASK Task Force on Reassessing the Inclusion of Race in Diagnosing Kidney Disease, JASN 2020). The CKD-EPI equation should not be used for patients with unstable renal function and has not been validated in children and those over 70. Current interpretive data was last reviewed 2021. Blood 04/02/2024 12:0 0 PM SIX PACK PACKER 04/02/2024 8:01 PM SIX PACK PACKER us Alfonso Carlos MD LAB BLOOD ORDERABLES Final Resu lt [facility] [address] [address] Department [place] [address] * Basic metabolic panel (04/02/2024 12:00 PM SIX PACK PACKER) Sodium 144 135 - 145 mmol/L Potassium, pl 3.8 3.3 - 4.9 mmol/L [facility] Chloride 107 97 - 110 mmol/L [facility] CH CO2 27 22 - 32 mmol/L [facility] CH Anion gap 10 2 - 15 mmol/L [facility] CH BUN 9 6 - 25 mg/dL [facility] Creatinine 0.83 0.60 - 1.10 mg/dL [facility] Glucose 91 70 - 199 mg/dL [facility] Comment: Interpretive Data Fasting glucose >/= 126 mg/dl is diagnostic for diabetes. ?? Fasting is defined as no caloric intake for at least 8 hours. Fasting glucose between 100 mg/dl to 125 mg/dl is diagnostic of prediabetes. In a patient with classic symptoms of hyperglycemia or hyperglycemic crisis, a random glucose >/= 200 mg/dl is diagnostic for diabetes. In the absence of unequivocal hyperglycemia, results should be confirmed by repeat testing. The classification and Diagnosis of Diabetes Diabetes Care 202; 46: S19-S40. Current interpretive data was last revised 2022. Calcium 9.1 8.5 - 10.3 mg/dL [facility] Blood 04/02/2024 12:0 0 PM SIX PACK PACKER 04/02/2024 7:56 PM SIX PACK PACKER us Alfonso Carlos MD LAB BLOOD ORDERABLES Final Resu lt [facility] [address] [address] Department [place] [address] * Dexa TBS Axial Skeleton Bone Density 1 or more sites (12/31/2023 1:15 PM CDT) Anatomical Region Laterality Modality Wrist, Body N/A Radiographic Yajaira ging Narrative 01/01/2024 8:34 AM CDT Patient Name: Rosa Elena Greene Date of : 1950 Date of scan: 12/31/2023 Bone mineral density was performed on a HoloEureka Discovery Densitometer. ?? Based on machine cross-calibration and precision studies the least significant changes of this densitometer is 0.024 g/cm2 at the spine, 0.020 g/cm2 at the total proximal femur, and 0.014g/cm2 at the forearm. HISTORY: This is a 73 y.o. postmenopausal female with a history of multiple fractures, osteoporosis, thyroid disease, and vitamin D deficiency. She reports that she has never smoked. She has never used smokeless tobacco. Currently on treatment with calcium, vitamin D, zoledronic acid (Reclast), and thyroid hormone, previously treated with alendronate (Fosamax) and hormone replacement therapy, and current complaint of back pain and neck pain. INDICATIONS: Menopause status, treatment monitoring, and history of osteoporosis. FINDINGS: BONE MINERAL DENSITY OF THE LUMBAR SPINE Bone Mineral Density (BMD) of the lumbar spine was measured from L1-L4 and the average density was calculated to be 0.825 gm/cm2. This corresponds to a T-score (standard deviations from the mean of young adults) of -2.0. When compared to the previous study of 11/27/22 there has been no significant changes in bone density. BONE MINERAL DENSITY OF THE PROXIMAL FEMUR Bone Mineral Density (BMD) of the left hip total was found to be 0.681 gm/cm2. This corresponds to a T-score standard deviations from the mean of young adults of -2.1. Femoral neck is 0.578 gm/cm2 with a T-score (standard deviations from the mean of young adults) of -2.4. When compared to the previous study of 11/27/22 there has been no significant changes in bone density. SUMMARY: Bone mineral density shows evidence of low bone mass at the lumbar spine and proximal femur and moderately increased fracture risk (Osteopenia). There has been no significant changes in bone density since previous measurement. The lumbar spine Trabecular Bone Score TBS was not obtained due to physician request. ADDITIONAL COMMENTS: Postmenopausal Women and Men Over 50: Diagnostic criteria: Osteoporosis: BMD at or below -2.5 T-score; Osteopenia (low bone mass): BMD between -1.0 and -2.5 T-score. If the patient has a history of a fragility fracture, a fracture that occurred with trauma equivalent to a fall from a standing position or less, then the diagnosis is osteoporosis regardless of bone density. The history and data sections of the bone mineral density scan were prepared by Donna Hernandez who is accredited by the International Society of Clinical Densitometry. The overall patient assessment and scan interpretation were performed by Alfonso Carlos M.D. who is certified by the International Society of Clinical Densitometry. [id number] Alfonso Carlos MD IMG DXA PROCEDURES Final Result from Last 3 Months or Most Recently Relevant to [place] [address] [employer] [facility] Address: [address] [address] [place] [address] [place] [address] [facility] [facility] Address: [address] [address] [place] [address] [place] [address] [employer] [facility] Address: [address] [address] [place] [phone] Care Teams Script Developer Relationship Specialty Start Date End Date Tyrell Barrera MD PCP - General Family Practice 12/10/23
--- OUTSIDE RECORDS SUMMARY | 2024-06-12 05:34 | XMS_ITS | Clinical Summary ---
Author Organization [facility] Address [address] [place] [address]. [place] [address] [place] [address] Care Team Providers Care Operations Lead Name Role Phone Tyrell Barrera MD Primary Care Provider [phone] Allergies Active Allergy Reactions Criticality Noted Date Comments Sulfa Antibiotics Nausea Only 01/16/2024 Medications levothyroxine (SYNTHROID) 25 MCG tablet Take 1 tablet (25 mcg total) by mouth every morning. Active losartan (COZAAR) 100 MG tablet Take 1 tablet (100 mg total) by mouth daily. Active vitamin D3 (CHOLECALCIFERO L) 125 mcg Tab Take 1 tablet (125 mcg total) by mouth daily. Active famotidine (PEPCID) 40 MG tablet Take 1 tablet (40 mg total) by mouth daily. 4 Active hydrocortisone 2.5 % cream APPLY TOPICALLY TO THE AFFECTED AREA EVERY NIGHT AT BEDTIME NEEDED 4 Active ketoconazole (NIZORAL) 2 % cream APPLY TOPICALLY TO THE AFFECTED AREA EVERY MORNING 4 Active loratadine (CLARITIN) 10 MG tablet Take 1 tablet (10 mg total) by mouth daily. Active meloxicam (MOBIC) 15 MG tablet Take 1 tablet (15 mg total) by mouth daily as needed. Active Probiotic Product (ALIGN) 4 MG Cap Take by mouth. Activ e levothyroxine (SYNTHROID) 25 MCG tablet Take 1 tablet (25 mcg total) by mouth daily. 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 Gender Identity Not on file Sexual Orientation Not on file Last Filed Vital Signs Vital Sign Reading Time Taken Comments Blood Pressure 136/85 02/17/2024 11:16 AM CDT Pulse 71 02/17/2024 11:16 AM CDT Temperature 36.1 ??C (97 ??F) 02/17/2024 10:49 AM CDT Respiratory Rate 18 02/17/2024 11:16 AM CDT Oxygen Saturation 97% 02/17/2024 11:16 AM CDT Inhaled Oxygen Concentration - - Weight 77 kg (169 lb 12.8 oz) 02/17/2024 10:49 A M CDT Height 162.6 cm (5' 4 ) 02/17/2024 10:49 AM CDT Body Mass Index 29.15 02/17/2024 10:49 AM CDT Plan of Treatment Health Maintenance Due Date Last Done Comments Colorectal Cancer Screening Colonoscopy (10 Years) 1950 Hepatitis C 01/29/1970 DTaP, Tdap and Td Vaccines (1 - Tdap) 01/29/1971 Annual Medicare Wellness Visit 01/29/2017 COVID-19 Vaccine ( season) 2024 09/06/2021, 07/22/2020, 06/24/2020 Influenza Adult (#1) 2024 03/17/2019, 03/26/20 17 Mammogram Screening 05/01/2025 05/01/2023, 04/26/2022, 02/22/2021, Additional history exists RSV Immunization or 60+ Years (1 - 1-dose 75+ series) 01/29/2027 Pneumococcal Vaccine: 65+ Years Completed 06/02/2021, 06/03/2020, 03/11/2015 Zoster Vaccines Completed 01/23/2023, 10/19, 05/16/2015 Dexa Scan (General) Completed 12/31/2023, 09/26/2021, 09/26/2021, Additional history exists Meningococcal B Vaccine Aged Out No l onger eligible based on patient's age to complete this topic Meningococcal Vaccine Aged Out No leidy jacquelyn eligible based on patient's age to complete this topic RSV Immunizations Under 20 Months Aged Out No longer eligible based on patient's age to complete this topic Insurance [facility] Care Teams Operations Lead Relationship Specialty Start Date End Date Tyrell Barrera MD [address] [place] [address] PCP - General FAMILY PRACTICE 01/16/24
--- OUTSIDE RECORDS SUMMARY | 2024-06-12 05:34 | XMS_ITS | Encounter Summary ---
Author Organization [facility] Address [address] [place] [address]. 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
--- OUTSIDE RECORDS SUMMARY | 2024-06-12 05:34 | XMS_ITS | Clinical Summary ---
Author Organization [facility] Medical [facility] [address] [place] [address] Care Team Providers Care Bench Repair Technician Name Role Phone Tyrell Barrrea MD Primary Care Provider [phone] Allergies Active Allergy Reactions Criticality Noted Date [...] osteoporosis wit hout current pathological fracture 07/08/2019 Encounters Date Type Department Care Team Description 05/19/2024 2:06 PM CLIENT SERVICES VICE PRESIDENT - 05/19/2024 11:59 PM CLIENT SERVICES VICE PRESIDENT Hospital Encounter [facility] [address] [place] [address] Screening mammogram, encounter for Discharge Disposition: Discharge to home or self care 04/07/2024 1:00 PM CLIENT SERVICES VICE PRESIDENT Infusion [facility] [address] [place] [address] [address] [place] [phone] Age-related osteoporosis without current pathological fracture (Primary Dx) 04/02/2024 7:17 PM CLIENT SERVICES VICE PRESIDENT - 04/02/2024 11:59 PM CLIENT SERVICES VICE PRESIDENT Hospital Encounter [facility] [address] [place] [address] Age-related osteoporosis without current pathological fracture Discharge Disposition: Discharge to home or self care 04/02/2024 1:30 PM CLIENT SERVICES VICE PRESIDENT Lab [facility] Outpatient Lab at [address] [address] Age-related osteoporosis without current pathological fracture (Primary Dx) 03/30/2024 Orders Only [facility] [address] [facility] [address] [place] [address] Marianne Castillo RN from Last 3 Months Surgical History Surgery Date Site/Laterality Comments TOTAL ABDOMINAL HYSTERECTOMY W/ BILATERAL SALPINGOOPHORECTOMY Total Abdominal Hysterectomy With Removal Of Ovary(S) - (Added by TW Conv) Medical History Medical History Date Comments Vascular disorder of intesti ne (CMS/HCC) (HCC) Ischemic colitis - 2004 (Add ed by TW Conv) Family History Medical History Relation Name Comments Hypertension Brother 1 Family history of hypertension - (Added by TW Conv) Leukemia Brother 2 Family history of leukemia - (Added by TW Conv) Heart disease Father Family history of cardiac disorder - (Added by TW Conv) Hypertension Father Family history of hypertension - (Added by TW Conv) Curvature of spine Mother Curvature of spine - (Added by TW Conv) Heart disease Mother Family history of cardiac disorder - (Added by TW Conv) Hip fracture Mother Family history of hip fracture - (Added by TW Conv) Hypertension Mother Family history of hypertension - (Added by TW Conv) Osteoporosis Mother Family history of osteoporosis - (Added by TW Conv) Parkinsonism Mother Parkinson disea se, symptomatic - (Added by TW Conv) Breast cancer Mother's Sister Hip fracture Other Family history of hip fracture - Relation: Grandmother (Added by TW Conv) Relation Name Status Comments Brother 1 Brother 2 Father Mother Mother's Sister Other Social History Tobacco Use Types Packs/Day Years [...] on file Legal Sex Female 8:03 PM CLIENT SERVICES VICE PRESIDENT Gender Identity Not on file Sexual Orientation Not on file Obstetrics History Para Term AB IAB SAB Ectopic Multiple Livin g Live Births 3 Date Outcome GA Total Labor Labor/2nd/3rd Weight Sex Type Anes PTL Juliana A1 A5 Name Clin Last Filed Vital Signs Vital Sign Reading Time Taken Comments Blood Pressure 144/75 04/07/2024 1:01 PM CLIENT SERVICES VICE PRESIDENT Pulse 74 04/07/2024 1:01 PM CLIENT SERVICES VICE PRESIDENT Temperature 35.3 ??C (95.6 ??F) 04/07/2024 1:01 PM CS T Respiratory Rate 16 04/07/2024 12:59 PM CLIENT SERVICES VICE PRESIDENT Oxygen Saturation 96% 04/07/2024 1:01 PM CLIENT SERVICES VICE PRESIDENT Inhaled Oxygen Concentration - - Weight 78.2 kg (172 lb 8 oz) 04/07/2024 12:59 PM CLIENT SERVICES VICE PRESIDENT Height 162.6 cm (5' 4 ) 12/31/2023 1:04 PM CDT Body Mass Index 29.61 12/31/2023 1:04 PM CDT Plan of Treatment Health Maintenance Due Date Last Done Comments Colon Cancer Screening-Colonoscopy 1950 Depression Screening 1950 Fall Risk Assessment 1950 Hepatitis C Screening 1950 DTaP/Tdap/Td Vaccine (1 - Tdap) 01/29/1963 Hepatitis B Screening 01/29/1970 Zoster Vaccine (2 of 3) 07/11/2015 05/16/2015 Pneumococcal vaccine 65+ (2 of 2 - PCV) 03/11/2016 03/11/2015 Well Visit 65+ 01/29/2017 Influenza Vaccine (#1) 2024 9, 03/17/2019, 03/26/2017, Additional history exists Breast Cancer Screening-Mammogram 05/19/2025 05/19/2024, 05/01/2023, 05/01/2023, Additional history exists Osteoporosis Screening-Bone Density Scan 12/30/2025 12/31/2023, 11/27/2022, 09/26/2021, Additional history exists Procedures Procedure Name Priority Date/Time Associated Diagnosis Comments SCREENING MAMMOGRAM BILATERAL W CONSTANTIN Schedule Routine, Read Routine (OP Routine) 05/19/2024 2:36 PM CLIENT SERVICES VICE PRESIDENT Screening mammogram, encounter for EGFR Routine 04/02/2024 12:00 PM CLIENT SERVICES VICE PRESIDENT Age-related osteoporosis without current pathological fracture BASIC METABOLIC PANEL Routine 04/02/2024 12:00 PM CLIENT SERVICES VICE PRESIDENT Age-related osteoporosis without current pathological fracture DEXA TBS AXIAL SKELETON BONE DENSITY 1 OR MORE SITES Schedule Routine, Read Routine (OP Routine) 12/31/2023 1:15 PM CDT Age-related osteoporosis without current pathological fracture from Last 3 Months or Most Recently Relevant to Health Maintenance Results * Screening Mammogram Bilateral W Constantin (05/19/2024 2:36 PM CLIENT SERVICES VICE PRESIDENT) Anatomical Region Laterality Modality Breast Bilateral Mammography Impressions 05/19/2024 3:04 PM CLIENT SERVICES VICE PRESIDENT BI-RADS?? ATLAS category (overall): 2 - Benign There is no mammographic evidence of malignancy. A 1 year screening mammogram is recommended. The patient has been or will be contacted. We recommend annual screening mammography for women at average risk of breast cancer beginning at age 40, based on guidelines of the [place] [employer] (ACR Practice Parameter for the Performance of Screening and Diagnostic Mammography) and [place] [employer]. For women with and elevated risk of breast cancer, please refer to the ACR Practice Parameter for specific screening recommendations. The patient will be entered into a reminder system with a target due date of 1 year for her next screening exam. Narrative 05/19/2024 3:04 PM CLIENT SERVICES VICE PRESIDENT Screening Mammogram Bilateral W Constantin: 05/19/24 The [...] nal Result * eGFR (04/02/2024 12:00 PM CLIENT SERVICES VICE PRESIDENT) eGFR 75 >=60 mL/min/1. 73 m2 Comment: [...] reviewed 2021. Blood 04/02/2024 12:0 0 PM CLIENT SERVICES VICE PRESIDENT 04/02/2024 8:01 PM CLIENT SERVICES VICE PRESIDENT us Alfonso Carlos MD LAB BLOOD ORDERABLES Final Resu lt [facility] [address] Department [place] [address] * Basic metabolic panel (04/02/2024 12:00 PM CLIENT SERVICES VICE PRESIDENT) Sodium 144 135 - 145 mmol/L Potassium, pl 3.8 3.3 - 4.9 mmol/L [facility] Chloride 107 97 - 110 mmol/L [facility] CO2 27 22 - 32 mmol/L [facility] Anion gap 10 2 - 15 mmol/L [facility] BUN 9 6 - 25 mg/dL [facility] Creatinine 0.83 0.60 - 1.10 mg/dL [facility] Glucose 91 70 - 199 mg/dL [facility] Comment: Interpretive Data Fasting glucose >/= 126 [...] 2022. Calcium 9.1 8.5 - 10.3 mg/dL [facility] Blood 04/02/2024 12:0 0 PM CLIENT SERVICES VICE PRESIDENT 04/02/2024 7:56 PM CLIENT SERVICES VICE PRESIDENT us Alfonso Carlos MD LAB BLOOD ORDERABLES Final Resu lt [facility] [address] Department [place] [address] * Dexa TBS Axial Skeleton Bone Density 1 or more sites (12/31/2023 1:15 PM CDT) Anatomical Region Laterality Modality Wrist, Body N/A Radiographic Yajaira ging Narrative 01/01/2024 8:34 AM CDT Patient Name: Rosa Elena Greene Date of : 1950 Date of scan: 12/31/2023 Bone mineral density was performed on a HoloSymetis Discovery Densitometer. ?? Based on machine cross-calibration [...] by the International Society of Clinical Densitometry. [id number] us Alfonso Carlos MD IMG DXA PROCEDURES Final Result from Last 3 Months or Most Recently Relevant to [place] [address] [place] [address] [place] [address] [place] [address] [place] [address] [place] [address] MEDICARE [employer] Care Teams Bench Repair Technician Relationship Specialty Start Date End Date Tyrell Barrera MD PCP - General Family Practice 12/10/23
== END 2024-06-11 14:04 | disposition home or self-care (01) ==
PROVIDERS: PCP Family Medicine; Visit Provider Nurse Practitioner Family
DX: E55.9 Vitamin D deficiency, unspecified (principal); E61.1 Iron deficiency; E78.5 Hyperlipidemia, unspecified; R05.9 Cough, unspecified; R53.83 Other fatigue; Z76.89 Persons encountering health services in other specified circumstances
CPT/HCPCS: 36415; 71046; 80053; 82306; 82607; 82728; 82746; 83540; 83550; 84443; 85025

== ENCOUNTER 2024-09-24 09:56 | Outpatient (CLI) | payer MEDICARE, SELFPAY ==
--- NOTE | ~2024-09-24 | CT_ITS ---
EXAMINATION: CT abdomen pelvis w con DATE: 09/24/2024 10:38 INDICATION: Generalized abdominal pain TECHNIQUE: Computed tomography (CT) of the abdomen and pelvis was performed with 100 mL Omnipaque-350 intravenous contrast. Automated exposure control and iterative reconstruction technique were employe d. The dose-length product was 998.27 mGy-cm. COMPARISON: 10/01/2022 FINDINGS: Unchanged mild discoid and dependent atelectasis/scarring in the right lower lobe. Heart size is norm al. Atherosclerotic coronary artery calcium location. No pericardial or pleural effusion. Small slidi ng-type hiatal hernia. Multiple scattered hepatic cysts measuring up to 3.6 cm. Cholecystectomy clips the gallbladder fossa. Spleen, pancreas and bilateral adrenal glands are normal. There are few bilat eral renal cysts the largest in the left kidney measuring up to 11 mm. Mild diverticulosis along the descending and sigmoid colon without surrounding inflammatory stranding to suggest diverticulitis. No bowel obstruction. The appendix is not visualized. No pericecal inflammatory change to suggest acute appendicitis. Bladder is normal. The uterus and ovaries are not identified and have likely been surg ically resected. No free intraperitoneal gas or fluid. No pathologically enlarged abdominal or pelvic lymphadenopathy. Chronic mild anterior wedging of T11. Severe degenerative disc height loss at L5-S1 with mild spondylosis and more cephalad lumbar and lower thoracic spine. IMPRESSION: 1. No acute intra-abdominal/pelvic process. 2. Mild diverticulosis. 3. Small sliding-type hiatal hernia. Reviewed, dictated and finalized at location A.
--- OUTSIDE RECORDS SUMMARY | 2024-09-24 10:14 | XMS_ITS | Encounter Summary ---
Author Organization [facility] Address [address] [place] [address] Care Team Providers Care Senior Nuclear Medicine Technologist Name Role Phone Giuseppe Martin MD Primary Care Provider Encounter Details Date Type Department Care Team (Late st Contact Info) Description 12/10/2006 Outpatient [facility] Headache Center [address] [facility] [address] [place] [address] Jacob Andrade ([facility]) Social History Tobacco Use Types Packs/Day Years Used Date Smoking Tobacco: Never Assessed Comments Unknown Sex and Gender Information Value Date Recorded Sex Assigned at Not on file Legal Sex Female 4:11 AM SUBSTATION INSPECTOR Gender Identity Not on file Sexual Orientation Not on file documented as of this encounter Plan of Treatment Not on file documented as of this encounter Visit Diagnoses Not on filedocumented in this encounter Care Teams Senior Nuclear Medicine Technologist Relationship Specialty Start Date End Date Giuseppe Martin MD [address] [place] [address] PCP - General 06/21/09 documented as of this encounter
--- OUTSIDE RECORDS SUMMARY | 2024-09-24 10:14 | XMS_ITS | Encounter Summary ---
Author Organization [facility] Address [address] [facility] [place] [address] Care Team Providers Care Taper And Floater Name Role Phone Dg Cruz MD Primary Care Provider [phone] Encounter Details Date Type Department Care Team (Late st Contact Info) Description 11/14/2021 Lab Requisition [facility] DermPath Lab [address] [facility] [place] [address] Raji Armas MD [address] [address] Social History Tobacco Use Types Packs/Day Years Used Date Smoking Tobacco: Never Assessed Comments Unknown Sex and Gender Information Value Date Recorded Sex Assigned at Not on file Legal Sex Female 2:23 PM CDT Gender Identity Not on file Sexual Orientation Not on file documented as of this encounter Plan of Treatment Not on file documented as of this encounter Procedures Procedure Name Priority Date/Time Associated Diagnosis Comments DERMATOPATHOLOGY Routine 11/13/2021 12:0 0 AM CDT documented in this encounter Results * DERMATOPATHOLOGY (11/13/2021 12:00 AM CDT) Case Report Dermatopathology Report Case: [id number] Authorizing Provider: Raji Armas MD Collected: 11/13/2021 12:00 AM Ordering Location: [facility] DermPath Lab Received: 11/14/2021 04:11 PM Pathologist: Lila Andrade MD Specimen: Skin, left thigh 2 3:39 PM CDT DERMATOPATHOLOGY LABORATORY Final Diagnosis Specimen A. SKIN, left thigh: SQUAMOUS CELL CARCINOMA IN SITU, PRESENT AT THE BASE OF THE SPECIMEN (D04.72) (see microscopic description and comment) 2 3:39 PM CDT DERMATOPATHOLOGY LABORATORY Clinical History SCCA vs PN. Path # [id number]. 2 3:39 PM CDT DERMATOPATHOLOGY LABORATORY Gross Description Specimen A: Received is one formalin filled container labeled with the patient's name and designated left thigh. The specimen consists of a shave biopsy measuring [id number]. Jar 0. 2 3:39 PM CDT DERMATOPATHOLOGY [...] characteristic determined by the Dermatopathology Laboratory at [facility], directed by Dr. Zoraida Clinton. These tests need not be, and therefore are not, approved by the [place] Food and Drug Administration. The tests are used for clinical purposes. Billing Codes Specimen Charges Stain Charges 02605 1 2 3:39 PM CDT DERMATOPATHOLOGY LABORATORY Embedded Images 2 3:39 PM CDT DERMATOPATHOLOGY LABORATORY Pathology/Cytolog y TISSUE SPECIMEN FROM SKIN / Unknown 11/13/2021 11/14/2021 4:11 PM CDT us Raji Armas MD LAB - PATHOLOGY/CYTOLOGY ORDER [place] Final Result DERMATOPATHOLOGY LABORATORY [facility] - Department of Dermatology [facility] Medicine [address] [facility]rd [address] [phone] documented in this encounter Visit Diagnoses Not on filedocumented in this encounter Care Teams Taper And Floater Relationship Specialty Start Date End Date Dg Cruz MD [address] [place] [address] PCP - General 01/17/18 documented as of this encounter
--- OUTSIDE RECORDS SUMMARY | 2024-09-24 10:14 | XMS_ITS | Clinical Summary ---
Author Organization [facility] Medical [facility] [address] [place] [address] Care Team Providers Care Middle School Teacher Name Role Phone Tyrell Barrera MD Primary Care Provider [phone] Allergies Active Allergy Reactions Criticality Noted Date [...] osteoporosis wit hout current pathological fracture 07/08/2019 Surgical History Surgery Date Site/Laterality Comments TOTAL ABDOMINAL HYSTERECTOMY W/ BILATERAL SALPINGOOPHORECTOMY Total Abdominal Hysterectomy With Removal Of Ovary(S) - (Added by TW Conv) Medical History Medical History Date Comments Vascular disorder of intestine I schemic colitis - 2004 (Added by TW Conv) Family History Medical History [...] on file Legal Sex Female 8:03 PM SORTING AND FOLDING SUPERVISOR Gender Identity Not on file Sexual Orientation Not on file Obstetrics History Para Term AB IAB SAB Ectopic Multiple Livin g Live Births 3 Date Outcome GA Total Labor Labor/2nd/3rd Weight Sex Type Anes PTL Juliana A1 A5 Name Clin Last Filed Vital Signs Vital Sign Reading Time Taken Comments Blood Pressure 144/75 04/07/2024 1:01 PM SORTING AND FOLDING SUPERVISOR Pulse 74 04/07/2024 1:01 PM SORTING AND FOLDING SUPERVISOR Temperature 35.3 C (95.6 F) 04/07/2024 1:01 PM SORTING AND FOLDING SUPERVISOR Respiratory Rate 16 04/07/2024 12:59 PM SORTING AND FOLDING SUPERVISOR Oxygen Saturation 96% 04/07/2024 1:01 PM SORTING AND FOLDING SUPERVISOR Inhaled Oxygen Concentration - - Weight 78.2 kg (172 lb 8 oz) 04/07/2024 12:59 PM SORTING AND FOLDING SUPERVISOR Height 162.6 cm (5' 4 ) 12/31/2023 [...] 03/11/2015 Well Visit 65+ 01/29/2017 Influenza Vaccine (Season Ended) 2025 03/17/2019, 03/17/2019, 03/26/2017, Additional history exists Breast Cancer Screening-Mammogram 05/19/2025 05/19/2024, 05/01/2023, 05/01/2023, Additional history exists Osteoporosis Screening-Bone Density Scan 12/30/2025 12/31/2023, 11/27/2022, 09/26/2021, Additional history exists Procedures Procedure Name Priority Date/Time Associated Diagnosis Comments SCREENING MAMMOGRAM BILATERAL W CONSTANTIN Schedule Routine, Read Routine (OP Routine) 05/19/2024 2:36 PM SORTING AND FOLDING SUPERVISOR Screening mammogram, encounter for DEXA TBS AXIAL SKELETON BONE DENSITY 1 OR MORE SITES Schedule Routine, Read Routine (OP Routine) 12/31/2023 1:15 PM CDT Age-related osteoporosis without current pathological fracture from Last 3 Months or Most Recently Relevant to Health Maintenance Results * Screening Mammogram Bilateral W Constantin (05/19/2024 2:36 PM SORTING AND FOLDING SUPERVISOR) Anatomical Region Laterality Modality Breast Bilateral Mammography Impressions 05/19/2024 3:04 PM SORTING AND FOLDING SUPERVISOR BI-RADS ATLAS category (overall): 2 - Benign There is no mammographic evidence of malignancy. A 1 year screening mammogram is recommended. The patient has been or will be contacted. We recommend annual screening mammography for women at average risk of breast cancer beginning at age 40, based on guidelines of the [place] [employer] (ACR Practice Parameter for the Performance of Screening and Diagnostic Mammography) and [place] [employer]. For women with and elevated risk of breast cancer, please refer to the ACR Practice Parameter for specific screening recommendations. The patient will be entered into a reminder system with a target due date of 1 year for her next screening exam. Narrative 05/19/2024 3:04 PM SORTING AND FOLDING SUPERVISOR Screening Mammogram Bilateral W Constantin: 05/19/24 The study was acquired using full field digital technology and interpreted from soft copy. 2D digital mammographic views, as well as 3D digital tomosynthesis were performed in the CC and MLO projections. CLINICAL: Screening mammogram, encounter for. No relevant medical history has been documented for this patient. History of breast cancer in Mother's Sister. COMPARISONS: 05/01/2023 Screening Mammogram Bilateral W Constantin 04/26/2022 Screening Mammogram Bilateral W Constantin 02/22/2021 Screening Mammogram Bilateral W Constantin 11/25/2019 Screening Mammogram Bilateral W Consatntin 08/12/2018 Screening Mammogram Bilateral W Constantin BREAST TISSUE: The breasts are almost entirely fatty. FINDINGS: There are benign calcifications in both breasts. No suspicious masses, suspicious calcifications, or other suspicious findings are seen within either breast. There has been no suspicious change. us Self Screening Mammogram IMG MAMMO PROCEDURES Fi nal Result * Dexa TBS Axial Skeleton Bone Density 1 or more sites (12/31/2023 1:15 PM CDT) Anatomical Region Laterality Modality Wrist, Body N/A Radiographic Yajaira ging Narrative 01/01/2024 8:34 AM CDT Patient Name: Rosa Elena Greene Date of : 1950 Date of scan: 12/31/2023 Bone mineral density was performed on a [employer] Discovery Densitometer. Based on machine cross-calibration and precision studies [...] by the International Society of Clinical Densitometry. [id number] Alfonso Carlos MD IMG DXA PROCEDURES Final Result from Last 3 Months or Most Recently Relevant to Health Maintenance Insurance [facility] MEDICARE ADVANTAGE [facility] MEDICARE ADVANTAGE [facility] MEDICARE ADVANTAGE Care Teams Middle School Teacher Relationship Specialty Start Date End Date Tyrell Barrera MD PCP - General Family Practice 12/10/23
--- OUTSIDE RECORDS SUMMARY | 2024-09-24 10:14 | XMS_ITS | Encounter Summary ---
Author Organization [facility] Address [address] [place] [address] Care Team Providers Care Vice President Consulting Services Name Role Phone Giuseppe Martin MD Primary Care Provider Encounter Details Date Type Department Care Team (Late st Contact Info) Description 10/21/2002 Outpatient [facility] Headache Center [address] [facility] [address] [place] [address] Jacob Andrade ([facility]) Social History Tobacco Use Types Packs/Day Years Used Date Smoking Tobacco: Never Assessed Comments Unknown Sex and Gender Information Value Date Recorded Sex Assigned at Not on file Legal Sex Female 4:11 AM 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
--- OUTSIDE RECORDS SUMMARY | 2024-09-24 10:14 | XMS_ITS | Encounter Summary ---
Author Organization [facility] Address 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
--- OUTSIDE RECORDS SUMMARY | 2024-09-24 10:14 | XMS_ITS | Encounter Summary ---
Author Organization [facility] Address [address] [place] [address] Care Team Providers Care Audit Clerk Name Role Phone Giuseppe Martin MD Primary Care Provider Encounter Details Date Type Department Care Team (Late st Contact Info) Description 09/26/2000 Outpatient [facility] Headache Center [address] [facility] [address] [place] [address] Jacob Andrade ([facility]) Social History Tobacco Use Types Packs/Day Years Used Date Smoking Tobacco: Never Assessed Comments Unknown Sex and Gender Information Value Date Recorded Sex Assigned at Not on file Legal Sex Female 4:11 AM MANAGEMENT AND BUDGET ANALYST Gender Identity Not on file Sexual Orientation Not on file documented as of this encounter Plan of Treatment Not on file documented as of this encounter Visit Diagnoses Not on filedocumented in this encounter Care Teams Audit Clerk Relationship Specialty Start Date End Date Giuseppe Martin MD [address] [place] [address] PCP - General 06/21/09 documented as of this encounter
--- OUTSIDE RECORDS SUMMARY | 2024-09-24 10:14 | XMS_ITS | Referral Summary ---
Author Organization [facility] Medical [facility] [address] [place] [address] Care Team Providers Care Communications Systems Engineer Name Role Phone Tyrell Barrera MD Primary Care Provider [phone] Allergies Active Allergy Reactions Criticality Noted Date [...] on file Legal Sex Female 8:03 PM SURVEILLANCE TECHNICIAN Gender Identity Not on file Sexual Orientation Not on file Last Filed Vital Signs Vital Sign Reading Time Taken Comments Blood Pressure 144/75 04/07/2024 1:01 PM SURVEILLANCE TECHNICIAN Pulse 74 04/07/2024 1:01 PM SURVEILLANCE TECHNICIAN Temperature 35.3 C (95.6 F) 04/07/2024 1:01 PM SURVEILLANCE TECHNICIAN Respiratory Rate 16 04/07/2024 12:59 PM SURVEILLANCE TECHNICIAN Oxygen Saturation 96% 04/07/2024 1:01 PM SURVEILLANCE TECHNICIAN Inhaled Oxygen Concentration - - Weight 78.2 kg (172 lb 8 oz) 04/07/2024 12:59 PM SURVEILLANCE TECHNICIAN Height 162.6 cm (5' 4 ) 12/31/2023 1:04 PM CDT Body Mass Index 29.61 12/31/2023 1:04 PM CDT Plan of Treatment Not on file Procedures Procedure Name Priority Date/Time Associated Diagnosis Comments SCREENING MAMMOGRAM BILATERAL W CONSTANTIN Schedule Routine, Read Routine (OP Routine) 05/19/2024 2:36 PM SURVEILLANCE TECHNICIAN Screening mammogram, encounter for DEXA TBS AXIAL SKELETON BONE DENSITY 1 OR MORE SITES Schedule Routine, Read Routine (OP Routine) 12/31/2023 1:15 PM CDT Age-related osteoporosis without current pathological fracture from Last 3 Months or Most Recently Relevant to Health Maintenance Results * Screening Mammogram Bilateral W Constantin (05/19/2024 2:36 PM SURVEILLANCE TECHNICIAN) Anatomical Region Laterality Modality Breast Bilateral Mammography Impressions 05/19/2024 3:04 PM SURVEILLANCE TECHNICIAN BI-RADS ATLAS category (overall): 2 - Benign There is no mammographic evidence of malignancy. A 1 year screening mammogram is recommended. The patient has been or will be contacted. We recommend annual screening mammography for women at average risk of breast cancer beginning at age 40, based on guidelines of the [employer] (ACR Practice Parameter for the Performance of Screening and Diagnostic Mammography) and [employer]. For women with and elevated risk of breast cancer, please refer to the ACR Practice Parameter for specific screening recommendations. The patient will be entered into a reminder system with a target due date of 1 year for her next screening exam. Narrative 05/19/2024 3:04 PM SURVEILLANCE TECHNICIAN Screening Mammogram Bilateral W Constantin: 05/19/24 The [...] Bone mineral density was performed on a HoloGalenea Discovery Densitometer. Based on machine cross-calibration and [...] by the International Society of Clinical Densitometry. [id number] Alfonso Carlos MD IM DXA PROCEDURES Final Result from Last 3 Months or Most Recently Relevant to Health Maintenance Insurance [facility] MEDICARE [facility] Address: [facility] [address] [place] [address] [facility] MEDICARE [facility] Address: [facility] [address] [place] [address] [facility] MEDICARE [facility] MED[facility] Address: [facility] [address] [place] [address] Care Teams Communications Systems Engineer Relationship Specialty Start Date End Date Tyrell Barrera MD PCP - General Family Practice 12/10/23
--- OUTSIDE RECORDS SUMMARY | 2024-09-24 10:14 | XMS_ITS | Encounter Summary ---
Author Organization [facility] Address 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
--- OUTSIDE RECORDS SUMMARY | 2024-09-24 10:14 | XMS_ITS | Clinical Summary ---
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 Gender Identity Not on file Sexual Orientation Not on file Last Filed Vital Signs Vital Sign Reading Time Taken Comments Blood Pressure 136/85 02/17/2024 11:16 AM CDT Pulse 71 02/17/2024 11:16 AM CDT Temperature 36.1 C (97 F) 02/17/2024 10:49 AM CDT Respiratory Rate 18 [...] Vaccine ( season) 2024 09/06/2021, 07/22/2020, 06/24/2020 Mammogram Screening 05/01/2025 05/01/2023, 04/26/2022, 02/22/2021, Additional history exists RSV Immunization or 60+ Years (1 - 1-dose 75+ series) 01/29/2027 Pneumococcal Vaccine: 50+ Years Completed 06/02/2021, 06/03/2020, 03/11/2015 Zoster Vaccines [...] patient's age to complete this topic Insurance [facility] [place] [address] Care Teams Diploma Dental Assistant Relationship Specialty Start Date End Date Tyrell Barrera MD [address] [place] [address] PCP - General FAMILY PRACTICE 01/16/24
--- OUTSIDE RECORDS SUMMARY | 2024-09-24 10:14 | XMS_ITS | Encounter Summary ---
Author Organization [facility] Address [address] [place] [address] Care Team Providers Care Senior Loan Officer Name Role Phone Tyrell Barrera MD Primary Care Provider [phone] Encounter Details Date Type Department Care Team (Late st Contact Info) Description 03/28/2016 Abstract [facility] CONVERSION [address] [place] [address] , Generic Conversion, Social History Tobacco Use Types Packs/Day Years Used Date Smoking Tobacco: Never Assessed Comments Unknown Sex and Gender Information Value Date Recorded Sex Assigned at Not on file 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
--- OUTSIDE RECORDS SUMMARY | 2024-09-24 10:14 | XMS_ITS | Encounter Summary ---
Author Organization [facility] Address [address] [place] [address] Care Team Providers Care Microbiology Lab Manager Name Role Phone Giuseppe Martin MD Primary Care Provider [phone] Encounter Details Date Type Department Care Team (Late st Contact Info) Description 07/10/1999 Outpatient [facility] [address] [facility] [facility] [address] [place] [address] Jacob Andrade ([facility]) Social History Tobacco Use Types Packs/Day Years Used Date Smoking Tobacco: Never Assessed Comments Unknown Sex and Gender Information Value Date Recorded Sex Assigned at Not on file Legal 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
--- OUTSIDE RECORDS SUMMARY | 2024-09-24 10:15 | XMS_ITS | Clinical Summary ---
Author Organization [facility] Address [address] [place] [address] Care Team Providers Care Mica Plate Layer Hand Name Role Phone Giuseppe Martin MD Primary [...] MAX 8 caps a week. 24 Capsule 05/30/2016 Active [place]- Ergotamine 1/Caffeine 60/Butalbital 15/Acetaminophe n 300 mg capsule compound Take 2 capsules by mouth at onset of headache. May repeat once in 2 hours if needed. Maximum of 4 capsules in 24 hours. 24 Capsule 2 06/04/2024 11:08 AM PERCH MENDER 06/02/2024 Active [place]- Ergotamine 1/Caffeine 60/Butalbital 15/Acetaminophe n 300 mg capsule compound Take 2 capsules by mouth at onset of headache. May repeat once in 2 hours if needed. Maximum of 4 capsules in 24 hours. 72 Capsule 1 09/22/2024 2:10 PM CDT 09/15/2024 Active prescription delivery fee Delivery fee 1 Units 09/15/2024 3:48 PM CDT 09/15/2024 Active Active Problems Problem Noted Date Diagnosed Date Hyperlipidemia 01/22/2012 Osteoporosis 02/22/2009 Degenerative disc disease 02/22/2009 Migraine Overview (06/14/2010): Updating IMO/ICD9 Code and Description Encounters Date Type Department Care Team Description 08/05/2024 External Device Data [facility] ABSTRACTION Provider, Abstract 07/25/2024 External Device Data [facility] ABSTRACTION Provider, Abstract 07/24/2024 External Device Data [facility] ABSTRACTION Provider, Abstract 07/22/2024 External Device Data [facility] ABSTRACTION Provider, Abstract 07/07/2024 External Device Data [facility] ABSTRACTION Provider, Abstract [...] on file Legal Sex Female 4:11 AM PERCH MENDER Gender Identity Not on file Sexual Orientation Not on file Occupation Industry Job Start Date Job End Date Not on file Not on file Not on file Not on file Last Filed Vital Signs Vital Sign Reading Time Taken Comments Blood Pressure 118/84 04/19/2015 1:46 PM PERCH MENDER lef t arm Pulse 64 04/19/2015 1:46 PM PERCH MENDER Temperature - - Respiratory Rate - - Oxygen Saturation - - Inhaled Oxygen Concentration - - Weight 76.7 kg (169 lb) 04/19/2015 1:46 PM PERCH MENDER Height 165.1 cm (5' 5 ) 04/19/2015 1:46 PM PERCH MENDER Body Mass Index 28.12 04/19/2015 1:46 PM PERCH MENDER Plan of Treatment Health Maintenance Due Date Last Done Comments DTAP/TDAP/TD VACCINES (1 - Tdap) 01/29/1971 BREAST CANCER SCREENING 1992 COLORECTAL SCREENING 01/29/1997 Colorectal Cancer Screening 01/29/1997 FIT-DNA Q 3 years 01/29/1997 FIT/FOBT Q 1 year 01/29/1997 Flex Sig/CT Colonography Q 5 years 01/29/1997 PNEUMOCOCCAL VACCINE 50+ YEARS (1 of 1 - PCV) 01/30/20 02 ZOSTER VACCINE (1 of 2) 01/29/2002 OSTEOPOROSIS SCREENING 01/29/2017 INFLUENZA VACCINE (#1) 2023 RSV VACCINE (60+ or ) (1 - 1-dose 75+ series) 01/29/2027 Insurance BCBS BLUE ACCESS/TRUE BLUE PPO RX [employer] RX Member Subscriber Plan / Payer ( fective 2017-Present) Name:Rosa Elena Greene Relation to Subscriber:Self Name:Rosa Elena Greene Payer ID:Not on file Group ID:[id number] Type:RX Medicare Part D Address: [address] Care Teams Mica Plate Layer Hand Relationship Specialty Start Date End Date Giuseppe Martin MD [address] [place] [address] PCP - General 06/21/09
--- OUTSIDE RECORDS SUMMARY | 2024-09-24 10:15 | XMS_ITS | Continuity of Care Document ---
Author Organization [facility] Address [address] [place] [address] [address] [place] [address] Phone Care Team Providers Care Deli Worker Name Role Phone Sharmin Boucher Unavailable Unavailable Advance Directives Directive Yes / No Effective Date File Name No Information Encounters Encounter Description Practice Location Reason(s) For Visit Diagnoses Date Provider Providers Copied on Encounter [facility], [id number] [place] [address] [address], [place], [place], [id number], [place] tel:[phone] [facility] No Information [address]. [address] , [address], [place], [address], [place]. tel:[phone] Family History Family Member Type Diagnosis Age At Onset No Information Payers Payer name Insurance type Covered constitution party ID Authoriza tion(s) No Information Social History [...]
--- OUTSIDE RECORDS SUMMARY | 2024-09-24 10:15 | XMS_ITS | Clinical Summary ---
Author Organization [facility] Health Address [address] [place] [address] Care Team Providers Care Senior Pensions Administrator Name Role Phone Dg Cruz MD Primary Care Provider [phone] Source Comments [facility],non-[facility] Affiliates and Associated Physician Practices is amultiple site organization consisting of ambulatory clinics and hospital sitesin [place], [place], [place] and [place]. This disclosure is being madepursuant to the Care Everywhere program and may not contain all information available regarding this patient. Last updated 18.[facility] [email or web address] Allergies No known active allergies Social History [...] VACCINE (1 of 2) 01/29/2002 COVID-19 VACCINE (1 - 2023-2 5 season) 2024 DEPRESSION SCREENING 05/20/2024 INFLUENZA VACCINE (Season Ended) 2025 Respiratory Syncytial Virus (RSV) Vaccine Pt: or [...] to complete this topic MENINGOCOCCAL (Group B) VACC INE SHARED DECISION-MAKING Aged Out No longer eligibl e based on patient's age to complete this topic MENINGOCOCCAL GROUPS A/C/Y/W VACCINE Aged Out No longer eligible b ased on patient's age [place] [id number] [facility] MANAGED MEDICARE ADV [employer] [place] [id number] Care Teams Senior Pensions Administrator Relationship Specialty Start Date End Date Dg Cruz MD [address] [place] [address] PCP - General 01/17/18
[2024-09-24 10:34] LABS: Estimated Glomerular Filt Rate > 60
[2024-09-24 11:54] LABS: Add Urine Microscopic? NO; Appearance Urine Clear (Clear); Bilirubin Urine Negative (Negative); Blood Urine Negative (Negative); Color Urine Yellow (Yellow); Glucose Urine UA Negative (Negative); Ketones Urine Negative (Negative); Leukocyte Esterase Ur Negative LEU/UL (Negative); Nitrate Urine Negative (Negative); Protein Urine Negative (Negative); Specific Grav Ur > 1.045 (1.001-1.035); Urobilinogen Urine 0.2 mg/dL (<2.0)
== END 2024-09-24 09:57 | disposition home or self-care (01) ==
PROVIDERS: PCP Family Medicine; Visit Provider Nurse Practitioner Family
DX: K57.30 Diverticulosis of large intestine without perforation or abscess without bleeding (principal); K44.9 Diaphragmatic hernia without obstruction or gangrene
CPT/HCPCS: 74177; 81003; 87086; Q9967

== ENCOUNTER 2025-05-04 09:46 | Outpatient (CLI) | payer MEDICARE, SELFPAY ==
--- NOTE | ~2025-05-04 | CT_ITS ---
EXAM/PROCEDURE: CT abdomen wo con HISTORY: R10.9 - Unspecified abdominal pain COMPARISON: September 242024 TECHNIQUE: Noncontrast CT of the abdomen only FINDINGS: Small to moderate-sized hiatal hernia appears slightly increased in size. Slight thickening of the distal esophageal wall may also be present. The stomach is unopacified and nondistended but no obvious acute process seen. Cholecystectomy clips. No hydroureteronephrosis. Nonobstructing right-sided kidney stones unchanged. Numerous liver cysts again noted. Pancreas spleen stomach and adrenal glands stable. No AAA. Visualized bowel gas pattern is nonobstructive with no free air free fluid or pneumatosis seen within the field of view. Minimal fibrotic appearing changes in lung bases which are otherwise clear. Heart size normal with no pericardial effusion. Bones appear stable. IMPRESSION: Directed noncontrast abdominal CT joint small to moderate size hiatal hernia with possible mild distal esophageal wall thickening which could be associated with esophagitis. Reviewed, dictated and finalized at location A. ESTATE REPRESENTATIVE IMPRESSION: Directed noncontrast abdominal CT joint small to moderate size hiatal hernia wi th possible mild distal esophageal wall thickening which could be associated wi th esophagitis.
--- OUTSIDE RECORDS SUMMARY | 2025-05-04 11:07 | XMS_ITS | Encounter Summary ---
Author Organization [facility] Address 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
--- OUTSIDE RECORDS SUMMARY | 2025-05-04 11:07 | XMS_ITS | Encounter Summary ---
Author Organization [facility] Address [address] [place] [address] Care Team Providers Care Infrastructure Software Engineer Name Role Phone Tyrell Barrera MD Primary Care Provider [phone] Encounter Details Date Type Department Care Team (Late st Contact Info) Description 03/28/2016 Abstract [facility] CONVERSION [address] [place] [address] , Generic Conversion, Social History Tobacco Use Types Packs/Day Years Used Date Smoking Tobacco: Never Assessed Comments Unknown Sex and Gender Information Value Date Recorded Sex Assigned at Female 11/25/2024 1:49 PM CDT 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
--- OUTSIDE RECORDS SUMMARY | 2025-05-04 11:07 | XMS_ITS | Clinical Summary ---
Author Organization [facility] Address [address] [place] [address] Care Team Providers Care Heavy Equipment Diesel Mechanic Name Role Phone Giuseppe Martin MD Primary [...] caps a week. 24 Capsule 05/30/2016 Active [place]- Ergotamine 1/Caffeine 60/Butalbital 15/Acetaminophe n 300 mg capsule compound Take 2 capsules by mouth at onset of headache. May repeat once in 2 hours if needed. Maximum of 4 capsules in 24 hours. 24 Capsule 2 06/04/2024 11:08 AM IP PARALEGAL 06/02/2024 Active [place]- Ergotamine 1/Caffeine 60/Butalbital 15/Acetaminophe n 300 mg capsule compound Take 2 capsules by mouth at onset of headache. May repeat once in 2 hours if needed. Maximum of 4 capsules in 24 hours. 72 Capsule 1 09/22/2024 2:10 PM CDT 09/15/2024 Active Active Problems Problem Noted Date Diagnosed Date Hyperlipidemia 01/22/2012 Osteoporosis 02/22/2009 Degenerative disc disease 02/22/2009 Migraine Overview (06/14/2010): Updating IMO/ICD9 Code and Description Encounters Date Type Department Care Team Description 03/10/2025 External Device Data [facility] ABSTRACTION Provider, Abstract 03/09/2025 External Device Data [facility] ABSTRACTION Provider, Abstract 02/09/2025 External Device Data [facility] ABSTRACTION Provider, Abstract 02/02/2025 External Device Data [facility] ABSTRACTION Provider, Abstract [...] on file Legal Sex Female 4:11 AM IP PARALEGAL Gender Identity Not on file Sexual Orientation Not on file Occupation Industry Job Start Date Job End Date Not on file Not on file Not on file Not on file Last Filed Vital Signs Vital Sign Reading Time Taken Comments Blood Pressure 118/84 04/19/2015 1:46 PM IP PARALEGAL lef t arm Pulse 64 04/19/2015 1:46 PM IP PARALEGAL Temperature - - Respiratory Rate - - Oxygen Saturation - - Inhaled Oxygen Concentration - - Weight 76.7 kg (169 lb) 04/19/2015 1:46 PM IP PARALEGAL Height 165.1 cm (5' 5) 04/19/2015 1:46 PM IP PARALEGAL Body Mass Index 28.12 04/19/2015 1:46 PM IP PARALEGAL Plan of Treatment Health Maintenance Due Date [...] 01/29/2002 OSTEOPOROSIS SCREENING 01/29/2017 INFLUENZA VACCINE (#1) 2024 RSV VACCINE (60+ or ) (1 - 1-dose 75+ series) 01/29/2027 Insurance BCBS BLUE ACCESS/TRUE BLUE PPO RX [employer] RX Member Subscriber Plan / Payer (Ef fective 2017-Present) Name:Rosa Elena Greene Relation to Subscriber:Self Name:Rosa Elena Greene Payer ID:Not on file Group ID:[id number] Type:RX Medicare Part D Address: [address] Care Teams Heavy Equipment Diesel Mechanic Relationship Specialty Start Date End Date Giuseppe Martin MD [address] [place] [address] PCP - General 06/21/09
--- OUTSIDE RECORDS SUMMARY | 2025-05-04 11:07 | XMS_ITS | Encounter Summary ---
Author Organization [facility] Address [address] [place] [address] Care Team Providers Care Metal Die Finisher Name Role Phone Dg Cruz MD Primary Care Provider [phone] Encounter Details Date Type Department Care Team (Late st Contact Info) Description 11/14/2021 Lab Requisition [facility] DermPath Lab [address] [place] [address] Raji Armas MD [address] [place] [id number] Social History Tobacco Use Types Packs/Day Years [...] AM CDT) Case Report Dermatopathology Report Case: [id number] Authorizing Provider: Raji Armas MD Collected: 11/13/2021 12:00 AM Ordering Location: [facility] DermPath Lab Received: 11/14/2021 04:11 PM Pathologist: Lila Andrade MD Specimen: Skin, left thigh 2 3:39 PM CDT DERMATOPATHOLOGY LABORATORY Final Diagnosis Specimen A. SKIN, left thigh: SQUAMOUS CELL CARCINOMA IN SITU, PRESENT AT THE BASE OF THE SPECIMEN (D04.72) (see microscopic description and comment) 2 3:39 PM CDT DERMATOPATHOLOGY LABORATORY at 1539 CDT Clinical History SCCA vs PN. Path # [id number]. 2 3:39 PM CDT DERMATOPATHOLOGY LABORATORY Gross Description Specimen A: Received is one formalin filled container labeled with the patient's name and designated left thigh. The specimen consists of a shave biopsy measuring [id number]. Jar 0. 2 3:39 PM CDT DERMATOPATHOLOGY [...] characteristic determined by the Dermatopathology Laboratory at [facility], directed by Dr. Zoraida Clinton. These tests need not be, and therefore are not, approved by the [place] Food and Drug Administration. The tests are used for clinical purposes. Billing Codes Specimen Charges Stain Charges 64019 1 2 3:39 PM CDT DERMATOPATHOLOGY LABORATORY Embedded Images 2 3:39 PM CDT DERMATOPATHOLOGY LABORATORY Pathology/Cytolog y TISSUE SPECIMEN FROM SKIN / Unknown 11/13/2021 11/14/2021 4:11 PM CDT us Raji Armas MD LAB - PATHOLOGY/CYTOLOGY ORDER [place] Final Result DERMATOPATHOLOGY LABORATORY [facility] - Department of Dermatology [facility] Specialized Medicine [address] [place] [address], [address] [phone] documented in this encounter Visit Diagnoses Not on filedocumented in this encounter Care Teams Metal Die Finisher Relationship Specialty Start Date End Date Dg Cruz MD [address] [place] [address] PCP - General 01/17/18 documented as of this encounter
--- OUTSIDE RECORDS SUMMARY | 2025-05-04 11:07 | XMS_ITS | Encounter Summary ---
Author Organization [facility] Address 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
--- OUTSIDE RECORDS SUMMARY | 2025-05-04 11:07 | XMS_ITS | Clinical Summary ---
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 Lumbar radiculopathy 01/16/2024 Family History Medical History [...] PM CDT Legal Sex Female 1:01 PM ICHTHYOLOGIST Gender Identity Not on file Sexual Orientation Not on file Last Filed Vital Signs Vital Sign Reading Time Taken Comments Blood Pressure 145/76 11/25/2024 2:28 PM CDT Pulse 69 11/25/2024 2:28 PM CDT Temperature 36.6 C (97.8 F) 11/25/2024 1:58 PM CDT Respiratory Rate 18 11/25/2024 2:28 PM CDT Oxygen Saturation 100% 11/25/2024 2:28 PM CDT Inhaled Oxygen Concentration - - Weight 77 kg (169 lb 12.8 oz) 02/17/2024 10:49 A M CDT Height 162.6 cm (5' 4) 02/17/2024 10:49 AM CDT Body Mass Index 29.15 02/17/2024 10:49 AM CDT Plan of Treatment Health Maintenance Due Date Last Done Comments Colorectal Cancer Screening Colonoscopy (10 Years) 1950 Hepatitis C 01/29/1970 DTaP, Tdap and Td Vaccines (1 - Tdap) 01/29/1971 Annual Medicare Wellness Visit 01/29/2017 COVID-19 Vaccine ( season) 2025 09/06/2021, 07/22/2020, 06/24/2020 Influenza Adult (#1) 2025 03/17/2019, 03/26/20 17 Mammogram Screening 05/19/2026 05/19/2024, 05/01/2023, 04/26/2022, Additional history exists RSV Immunization or 60+ Years (1 - 1-dose 75+ series) 01/29/2027 Pneumococcal Vaccine: 50+ Years Completed 06/02/2021, 06/03/2020, 03/11/2015 Zoster Vaccines Completed 01/23/2023, 10/19, 05/16/2015 Dexa Scan (General) Completed 12/31/2023, 09/26/2021, 09/26/2021, Additional history exists Hepatitis A Vaccines Aged Out No long er eligible based on patient's age to complete this topic Meningococcal B Vaccine Aged Out No l onger eligible based on patient's age to complete this topic Meningococcal Vaccine Aged Out No leidy jacquelyn eligible based on patient's age to complete this topic RSV Immunizations Under 20 Months Aged Out No longer eligible based on patient's age to complete this topic Insurance [facility] [place] [address] Care Teams Criminal Intelligence Specialist Relationship Specialty Start Date End Date Tyrell Barrera MD [address] [place] [address] PCP - General FAMILY PRACTICE 01/16/24
--- OUTSIDE RECORDS SUMMARY | 2025-05-04 11:07 | XMS_ITS | Encounter Summary ---
Author Organization [facility] Address 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
--- OUTSIDE RECORDS SUMMARY | 2025-05-04 11:07 | XMS_ITS | Encounter Summary ---
Author Organization [facility] Address [address] [place] [address] Care Team Providers Care Entry Level Marketing Representative Name Role Phone Giuseppe Martin MD Primary Care Provider Encounter Details Date Type Department Care Team (Late st Contact Info) Description 09/26/[address] [facility] [id number] [place] [address] [address] [place] [address] Jacob Andrade (Two) Social History Tobacco Use Types Packs/Day Years Used Date Smoking Tobacco: Never Assessed Comments Unknown Sex and Gender Information Value Date Recorded Sex Assigned at Not on file Legal Sex Female 4:11 AM LEGAL SPECIALIST Gender Identity Not on file Sexual Orientation Not on file documented as of this encounter Plan of Treatment Not on file documented as of this encounter Visit Diagnoses Not on filedocumented in this encounter Care Teams Entry Level Marketing Representative Relationship Specialty Start Date End Date Giuseppe Martin MD [address] [place] [address] PCP - General 06/21/09 documented as of this encounter
--- OUTSIDE RECORDS SUMMARY | 2025-05-04 11:07 | XMS_ITS | Encounter Summary ---
Author Organization [facility] Address [address] [place] [address] Care Team Providers Care Naval Aircrewman Mechanical Name Role Phone Giuseppe Martin MD Primary Care Provider Encounter Details Date Type Department Care Team (Late st Contact Info) Description 10/21/2002 Outpatient [facility] [address] [facility] [address] [place] [address] Jacob Andrade (Two) Social History Tobacco Use Types Packs/Day Years Used Date Smoking Tobacco: Never Assessed Comments Unknown Sex and Gender Information Value Date Recorded Sex Assigned at Not on file Legal Sex Female 4:11 AM DRYWALL FINISHING FOREMAN Gender Identity Not on file Sexual Orientation Not on file documented as of this encounter Plan of Treatment Not on file documented as of this encounter Visit Diagnoses Not on filedocumented in this encounter Care Teams Naval Aircrewman Mechanical Relationship Specialty Start Date End Date Giuseppe Martin MD [address] [place] [address] PCP - General 06/21/09 documented as of this encounter
--- OUTSIDE RECORDS SUMMARY | 2025-05-04 11:07 | XMS_ITS | Clinical Summary ---
Author Organization [facility] [address] [place] [address] Care Team Providers Care Wildland Firefighter Name Role Phone Tyrell Barrera MD Primary Care Provider [phone] Allergies Active Allergy Reactions Criticality Noted Date Comments Sulfa (Sulfonamide Antibiotics) Nausea & Vomiting Low 05/17/2015 Medications Bifidobacterium infantis (ALIGN) 4 mg capsule USE DIRECTED. 05/28/19 09 Active meloxicam (MOBIC) 15 mg tablet take tablet prn Active levothyroxine (SYNTHROID) 25 mcg tablet Take 1 tablet (25 mcg total) by mouth daily Active famotidine (PEPCID) 40 mg tablet Take 1 tablet (40 mg total) by mouth daily 12/05/19 24 Active triamcinolone (KENALOG) 0.1 % cream APPLY TOPICALLY TO AFFECTED AREAS TWICE DAILY FOR UP TO 2 WEEKS NEEDED Active nystatin cream APPLY TOPICALLY TO THE AFFECTED AREA TWICE DAILY NEEDED Active ketoconazole (NIZORAL) 2 % cream APPLY TOPICALLY TO THE AFFECTED AREA EVERY MORNING 12/12/19 24 Active losartan (COZAAR) 100 mg tablet Take 1 tablet (100 mg total) by mouth daily Active hydrocortisone 2.5 % cream APPLY TOPICALLY TO THE AFFECTED AREA EVERY NIGHT AT BEDTIME NEEDED 12/12/19 24 Active ergocalciferol (VITAMIN D) 50,000 unit capsuleIndicati ons:Age-related osteoporosis without current pathological fracture Take 1 capsule (50,000 Units total) by mouth every 2 (two) weeks 6 capsule 1 01/23/20 25 026 Active ergotamine tartrate/caffei ne (ERGOTAMINE-CAF FEINE ORAL) Take 2 capsules at onset of headache, may repeat once after 2 hr PRN; MAX 4 caps in 24 hr, MAX 8 caps a week. 05/30/19 17 025 Discontinued amoxicillin (AMOXIL) 875 mg tablet TK 1 T PO Q 12 H TAT 025 Discontinued(Th erapy completed) azithromycin (ZITHROMAX) 250 mg tablet TAKE 2 TABLETS (500 MG) BY ORAL ROUTE ONCE DAILY FOR 1 DAY THEN 1 TABLET (250 MG) BY ORAL ROUTE ONCE DAILY FOR 4 DAYS 025 Discontinued fluconazole (DIFLUCAN) 150 mg tablet TAKE 1 TABLET BY MOUTH DAILY X 5 DAYS 025 Discontinued neomycin-polymy qi B-dexAMETHasone (MAXITROL) 3.5 mg/g-10,000 unit/g-0.1 % ointment LIZBETH A SMALL AMT TO LOWER LID POCKET OF OD ONCE D IN THE RAVINDRA 025 Discontinued montelukast (SINGULAIR) 10 mg tablet Take 1 tablet every day by oral route. 025 Discontinued hydrOXYzine (ATARAX) 50 mg tablet TK 1 T PO QHS PRF INSOMNIA/STR ESS 025 Discontinued Active Problems Problem Noted Date Diagnosed Date Age-related osteoporosis wit hout current pathological fracture 07/08/2019 Encounters Date Type Department Care Team Description 04/28/2025 11:30 AM ETHICS MANAGER Office Visit [facility] Medicine [facility] [address] [place] [phone] Jeanette Howard MD Macromastjames (Primary Dx) from Last 3 Months Surgical History Surgery Date Site/Laterality Comments TOTAL ABDOMINAL HYSTERECTOMY W/ BILATERAL SALPINGOOPHORECTOMY Total Abdominal Hysterectomy With Removal Of Ovary(S) - (Added by TW Conv) GALLBLADDER SURGERY Medical History Medical History Date Comments Vascular disorder of intestine I schemic colitis - 2004 (Added by TW Conv) Acid reflux Rash under breast Hypothyroid Family History Medical History Relation Name Comments [...] Mother Curvature of spine - (Added by Conv) Heart disease Mother Family history of cardiac disorder - (Added by TW Conv) Hip fracture Mother Family history of hip fracture - (Added by TW Conv) Hypertension Mother Family history of hypertension - (Added by TW Conv) Osteoporosis Mother Family history of osteoporosis - (Added by TW Conv) Parkinsonism Mother Parkinson disea se, symptomatic - (Added by Conv) Breast cancer Mother's Sister Hip fracture Other Family history of hip fracture - Relation: Grandmother (Added by TW Conv) Relation Name Status Comments Brother 1 Brother 2 Father Mother Mother's Sister Other Social History Tobacco Use Types Packs/Day Years Used Date Smoking Tobacco: Never Smokeless Tobacco: Never Tobacco Cessation:Counseling Given: Not Answered Alcohol Use Standard Drinks/Week Comments Never 0 (1 standard drink = 0.6 oz pur e alcohol) AUDIT-C Answer Date Recorded Q1: How often do you have a drink containing alcohol? Never 04/28/2025 Q2: How many drinks containi ng alcohol do you have on a typical day when you are drinking? Patient does not drink Q3: How often do you have si x or more drinks on one occasion? Never 04/28/2025 Personal Safety Answer Date Recorded Have you ever been in or are you currently in a harmful physical or emotional relationship or is someone making you feel afraid or unsafe? Denies 04/07/2024 Comments No Sex and Gender Information Value Date Recorded Sex Assigned at Not on file Legal Sex Female 8:03 PM ETHICS MANAGER Gender Identity Not on file Sexual Orientation Not on file Obstetrics History Para Term AB IAB SAB Ectopic Multiple Livin g Live Births 3 Date Outcome GA Total Labor Labor/2nd/3rd Weight Sex Type Anes PTL Juliana A1 A5 Name Clin Last Filed Vital Signs Vital Sign Reading Time Taken Comments Blood Pressure 144/75 04/07/2024 1:01 PM ETHICS MANAGER Pulse 74 04/07/2024 1:01 PM ETHICS MANAGER Temperature 35.3 C (95.6 F) 04/07/2024 1:01 PM ETHICS MANAGER Respiratory Rate 16 04/07/2024 12:59 PM ETHICS MANAGER Oxygen Saturation 96% 04/07/2024 1:01 PM ETHICS MANAGER Inhaled Oxygen Concentration - - Weight 74.8 kg (165 lb) 04/28/2025 11:12 AM ETHICS MANAGER Height 165.1 cm (5' 5) 04/28/2025 11:12 AM ETHICS MANAGER Body Mass Index 27.46 04/28/2025 11:12 AM ETHICS MANAGER Plan of Treatment Health Maintenance Due Date Last Done Comments Colon Cancer Screening-Colonoscopy 1950 Depression Screening 1950 Fall Risk Assessment 1950 Hepatitis C Screening 1950 DTaP/Tdap/Td Vaccine (1 - Tdap) 01/29/1963 Hepatitis B Screening 01/29/1970 Zoster Vaccine (2 of 3) 07/11/2015 05/16/2015 Well Visit 65+ 01/29/2017 Covid-19 Vaccine (3 - 2024-2 6 season) 2025 07/22/2020, 06/24/2020 Influenza Vaccine (#1) 2025 9, 03/17/2019, 03/26/2017, Additional history exists Breast Cancer Screening-Mammogram 05/19/2025 05/19/2024, 05/01/2023, 04/26/2022, Additional history exists Pneumococcal vaccine 65+ (3 of 3 - PCV20 or PCV21) 06/03/2025 06/03/2020, 03/11/2015 Osteoporosis Screening-Bone Density Scan 12/30/2025 12/31/2023, 11/27/2022, 09/26/2021, Additional history exists Procedures Procedure Name Priority Date/Time Associated Diagnosis Comments SCREENING MAMMOGRAM BILATERAL W CONSTANTIN Schedule Routine, Read Routine (OP Routine) 05/19/2024 2:36 PM ETHICS MANAGER Screening mammogram, encounter for DEXA TBS AXIAL SKELETON BONE DENSITY 1 OR MORE SITES Schedule Routine, Read Routine (OP Routine) 12/31/2023 1:15 PM CDT Age-related osteoporosis without current pathological fracture from Last 3 Months or Most Recently Relevant to Health Maintenance Results * Screening Mammogram Bilateral W Constantin (05/19/2024 2:36 PM ETHICS MANAGER) Anatomical Region Laterality Modality Breast Bilateral Mammography Impressions 05/19/2024 3:04 PM ETHICS MANAGER BI-RADS ATLAS category (overall): 2 - Benign There is no mammographic evidence of malignancy. A 1 year screening mammogram is recommended. The patient has been or will be contacted. We recommend annual screening mammography for women at average risk of breast cancer beginning at age 40, based on guidelines of the [place] [employer] (ACR Practice Parameter for the Performance of Screening and Diagnostic Mammography) and [place] [employer]. For women with and elevated risk of breast cancer, please refer to the ACR Practice Parameter for specific screening recommendations. The patient will be entered into a reminder system with a target due date of 1 year for her next screening exam. Narrative 05/19/2024 3:04 PM ETHICS MANAGER Screening Mammogram Bilateral W Constantin: 05/19/24 The [...] Bone mineral density was performed on a [employer] Discovery Densitometer. Based on machine cross-calibration and [...] by the International Society of Clinical Densitometry. [id number] Alfonso Carlos MD IMG DXA PROCEDURES Final Result from Last 3 Months or Most Recently Relevant to [place] [address] UHC MEDICARE ADVANTAGE Member Subscriber Plan / Payer (Ef fective 2022-Present) Name:Rosa Elena Greene Relation to Subscriber:Self Name:Rosa Elena Greene Payer ID:[id number] (NAIC) Type:[facility] Address: [id number] [place] [address] [place] [place] [address] UHC MEDICARE ADVANTAGE Care Teams Wildland Firefighter Relationship Specialty Start Date End Date Tyrell Barrera MD PCP - General Family Practice 12/10/23
--- OUTSIDE RECORDS SUMMARY | 2025-05-04 11:07 | XMS_ITS | Clinical Summary ---
Author Organization [facility] Address [address] [place] [address] Care Team Providers Care Mushroom Sorter Grader Name Role Phone Dg Cruz MD Primary Care Provider [phone] Source Comments [facility] Affiliates and Associated Physician Practices is amultiple site organization consisting of ambulatory clinics and hospital sitesin [place], [place], [place] and [place]. This disclosure is being madepursuant to the Care Everywhere program and may not contain all information available regarding this patient. Last updated 18.[facility] Allergies No known active allergies Social History [...] 01/29/2002 ZOSTER VACCINE (1 of 2) 01/29/2002 DEPRESSION SCREENING 05/20/2024 MEDICARE AWV CALENDAR YEAR 2024 COVID-19 VACCINE (1 - 2024-2 6 season) 2025 INFLUENZA VACCINE (#1) 2025 Respiratory Syncytial Virus (RSV) Vaccine Pt: [...] patient's age to complete this topic Insurance [facility] MANAGED MEDICARE ADV [facility] MANAGED MEDICARE ADV Care Teams Mushroom Sorter Grader Relationship Specialty Start Date End Date Dg Cruz MD [address] [place] [address] PCP - General 01/17/18
--- OUTSIDE RECORDS SUMMARY | 2025-05-04 11:07 | XMS_ITS | Encounter Summary ---
Author Organization [facility] Address [address] [place] [address] Care Team Providers Care Airline Manager Name Role Phone Giuseppe Martin MD Primary Care Provider Encounter Details Date Type Department Care Team (Late st Contact Info) Description 08/28/2005 Outpatient [facility] [address] [facility] [address] [place] [address] Jacob Andrade (Two) Social History Tobacco Use Types Packs/Day Years Used Date Smoking Tobacco: Never Assessed Comments Unknown Sex and Gender Information Value Date Recorded Sex Assigned at Not on file Legal Sex Female 4:11 AM EXTRUSION DIE REPAIR MANAGER Gender Identity Not on file Sexual Orientation Not on file documented as of this encounter Plan of Treatment Not on file documented as of this encounter Visit Diagnoses Not on filedocumented in this encounter Care Teams Airline Manager Relationship Specialty Start Date End Date Giuseppe Martin MD [address] [place] [address] PCP - General 06/21/09 documented as of this encounter
== END 2025-05-04 09:47 | disposition home or self-care (01) ==
PROVIDERS: PCP Family Medicine; Visit Provider Family Medicine
DX: R10.9 Unspecified abdominal pain (principal); K21.9 Gastro-esophageal reflux disease without esophagitis
CPT/HCPCS: 74150